=== PATIENT | male | born 1945 | race Caucasian/White ===

== ENCOUNTER 2020-12-26 14:28 | Outpatient (CLI) | payer MEDICARE, SELFPAY | END 2020-12-26 14:29 | disposition home or self-care (01) | LOC: ANHCOVIDVC 14:28 | PROVIDERS: PCP Internal Medicine | DX: Z23 Encounter for immunization (principal) | CPT/HCPCS: 0001A; 91300 ==

== ENCOUNTER 2021-01-16 14:26 | Outpatient (CLI) | payer MEDICARE, SELFPAY | END 2021-01-16 14:27 | disposition home or self-care (01) | LOC: ANHCOVIDVC 14:26 | PROVIDERS: PCP Internal Medicine | DX: Z23 Encounter for immunization (principal) | CPT/HCPCS: 0002A; 91300 ==

== ENCOUNTER 2023-08-04 09:49 | Outpatient (CLI) | payer MEDICARE, SELFPAY ==
[2023-08-04 18:36] LABS: Basophils Percent Auto 0.5 % (0.2-1.2); Eosinophils Absolute Auto 0.2 K/mm3 (0-0.3); Eosinophils Percent Auto 2.4 % (0-4.4); Hematocrit 47.8 % (42.0-52.0); Hemoglobin 15.7 g/dL (14.0-18.0); Immature Granulocyte Absolute 0.02 K/mm3 (0.00-0.031); Immature Granulocyte Percent A 0.2 % (0-0.5); Lymphocytes Absolute Auto 3.53 K/mm3 (0.9-3.2); Lymphocytes Percent Auto 42.3 % (18.3-44.2); Mean Corpuscular HGB Conc 32.8 g/dl (32-36); Mean Corpuscular Hemoglobin 33.3 pg (26-34); Mean Corpuscular Volume 101.5 fl (80-100); Mean Platelet Volume 9.4 fl (7.4-10.4); Monocytes Absolute Auto 0.7 K/mm3 (0.1-0.6); Monocytes Percent Auto 8.5 % (2.6-8.5); Neutrophils Absolute Auto 3.8 K/mm3 (1.3-6.7); Neutrophils Percent Auto 46.1 % (45.5-73.1); Platelet Count Result 268 k/mm3 (150-375); Red Blood Count 4.71 M/mm3 (4.6-6.20); Red Cell Distribution Width 15.2 % (11.5-14.5); White Blood Count 8.3 K/mm3 (4.5-10.0)
[2023-08-04 19:24] LABS: Alanine Aminotransferase 29 U/L (6-50); Albumin Level 4.4 g/dL (3.5-5.1); Alkaline Phosphatase 81 U/L (38-126); Anion Gap 4 mmol/L (8-16); Aspartate Amino Transferase 32 U/L (17-59); Bilirubin,Total 0.8 mg/dL (0.2-1.3); Blood Urea Nitrogen 25 mg/dL (9-20); Calcium 9.2 mg/dL (8.4-10.2); Carbon Dioxide 29 mmol/L (22-30); Chloride 104 mmol/L (98-107); Cholesterol 173 mg/dL (0-200); Estimated Glomerular Filt Rate 59; Glucose 88 mg/dL (65-110); HDL Direct 76 mg/dL; Potassium 4.4 mmol/L (3.4-5.0); Sodium 137 mmol/L (137-145); Triglycerides 72 mg/dL (<150)
[2023-08-04 19:36] LABS: LDL Cholesterol Direct 73 mg/dL
[2023-08-04 19:54] LABS: Prostate Specific Antigen 2.7 ng/mL (< OR = 4.0)
[2023-08-04 20:38] LABS: Hemoglobin A1C 5.8 % (<5.7)
== END 2023-08-04 09:50 | disposition home or self-care (01) ==
PROVIDERS: PCP Internal Medicine; Visit Provider Clinical Nurse Specialist
DX: Z12.5 Encounter for screening for malignant neoplasm of prostate (principal); E78.5 Hyperlipidemia, unspecified; R73.9 Hyperglycemia, unspecified; I10 Essential (primary) hypertension; I48.91 Unspecified atrial fibrillation
CPT/HCPCS: 36415; 80053; 80061; 83036; 84153; 85025; G0103

== ENCOUNTER 2024-02-03 09:32 | Outpatient (CLI) | payer MEDICARE, SELFPAY ==
[2024-02-03 13:46] LABS: Basophils Percent Auto 0.5 % (0.2-1.2); Eosinophils Absolute Auto 0.2 K/mm3 (0-0.3); Eosinophils Percent Auto 2.5 % (0-4.4); Hematocrit 47.2 % (42.0-52.0); Hemoglobin 15.2 g/dL (14.0-18.0); Immature Granulocyte Absolute 0.03 K/mm3 (0.00-0.031); Immature Granulocyte Percent A 0.4 % (0-0.5); Lymphocytes Absolute Auto 3.54 K/mm3 (0.9-3.2); Lymphocytes Percent Auto 42.9 % (18.3-44.2); Mean Corpuscular HGB Conc 32.2 g/dl (32-36); Mean Corpuscular Volume 102.6 fl (80-100); Mean Platelet Volume 9.7 fl (7.4-10.4); Monocytes Absolute Auto 0.6 K/mm3 (0.1-0.6); Monocytes Percent Auto 7.8 % (2.6-8.5); Neutrophils Absolute Auto 3.8 K/mm3 (1.3-6.7); Neutrophils Percent Auto 45.9 % (45.5-73.1); Platelet Count Result 269 k/mm3 (150-375); Red Cell Distribution Width 15.5 % (11.5-14.5); White Blood Count 8.3 K/mm3 (4.5-10.0)
[2024-02-03 14:02] LABS: Alanine Aminotransferase 25 U/L (6-50); Albumin Level 4.4 g/dL (3.5-5.1); Alkaline Phosphatase 85 U/L (38-126); Anion Gap 6 mmol/L (4-12); Aspartate Amino Transferase 56 U/L (17-59); Bilirubin,Total 0.8 mg/dL (0.2-1.3); Blood Urea Nitrogen 29 mg/dL (9-20); Calcium 9.5 mg/dL (8.4-10.2); Carbon Dioxide 26 mmol/L (22-30); Chloride 108 mmol/L (98-107); Cholesterol 160 mg/dL (0-200); Estimated Glomerular Filt Rate 59; Glucose 83 mg/dL (65-110); HDL Direct 65 mg/dL; Potassium 4.2 mmol/L (3.4-5.0); Sodium 140 mmol/L (137-145); Triglycerides 75 mg/dL (<150)
[2024-02-03 14:13] LABS: LDL Cholesterol Direct 71 mg/dL
[2024-02-03 14:31] LABS: Prostate Specific Antigen 2.5 ng/mL (< OR = 4.0)
== END 2024-02-03 09:33 | disposition home or self-care (01) ==
LOC: ANHGOSHLAB 09:33
PROVIDERS: PCP Internal Medicine; Visit Provider Nurse Practitioner
DX: E78.5 Hyperlipidemia, unspecified (principal); I10 Essential (primary) hypertension; Z13.6 Encounter for screening for cardiovascular disorders; Z12.5 Encounter for screening for malignant neoplasm of prostate; I48.91 Unspecified atrial fibrillation
CPT/HCPCS: 36415; 80053; 80061; 84153; 85025; G0103

== ENCOUNTER 2025-03-02 09:03 | Outpatient (CLI) | payer MEDICARE, SELFPAY ==
--- OUTSIDE RECORDS SUMMARY | 2025-03-02 09:15 | XMS_ITS | Encounter Summary ---
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, including hip Social History Tobacco Use Types Packs/Day Years Used Date Smoking Tobacco: Every Day Cigarettes Smokeless Tobacco: Current Alcohol Use Standard Drinks/Week Comments Yes 1 (1 standard drink = 0.6 oz pur e alcohol) Sex and Gender Information Value Date Recorded Sex Assigned at Not on file Legal Sex Male 5:13 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 CLAMP 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 Gender Identity Not on file Sexual Orientation Not on file documented as of this encounter Plan of Treatment Not on file documented as of this encounter Procedures Procedure Name Priority Date/Time Associated Diagnosis Comments DERMATOPATHOLOGY Routine 12/24/2023 12:0 0 AM SASH CLAMP OPERATOR 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 SKIN, right distal pretibial region: SQUAMOUS CELL CARCINOMA, WELL DIFFERENTIATED (C44.722) NOT PRESENT AT MARGIN DERMAL SCAR (L90.5) 11:[address] [facility] DERMATOPATHOLOGY LABORATORY Clinical History Squamous Cell Carcinoma. Check margins. 11:[address] [facility] DERMATOPATHOLOGY LABORATORY Gross Description Specimen A: Received is one formalin filled container labeled with the patient's name and designated right distal pretibial region. The specimen consists of a non-oriented ellipse of skin measuring 17t52d8 mm. The epidermal surface is unremarkable. The margin is inked green. The 12 o'clock and 6 o'clock tips are submitted in cassette 1. The remainder of the ellipse is serially sectioned and submitted in cassette 2-3. Jar 0. 11:[address] [facility] DERMATOPATHOLOGY LABORATORY Microscopic Description Specimen A. SKIN, right distal pretibial region: Arising in the epidermis and extending into the dermis there are irregularly shaped aggregates of keratinocytes showing evidence of premature cornification. This lesion is not present at the margin of the specimen. There are fibroblasts and collagen bundles oriented parallel to the skin surface with elongated blood vessels, some of which are oriented perpendicular to the skin surface. 11:[address] [facility] DERMATOPATHOLOGY LABORATORY Disclaimer An external and internal positive and negative controls are appropriate for the histochemical, immunohistochemical and immunofluorescence stain(s) in this case (if any), except where stated explicitly. The performance characteristics of the stain(s) cited in this report were developed and its performance characteristic determined by the Dermatopathology Laboratory at [facility], directed by Dr. Lance Guaman. These tests need not be, and therefore are not, approved by the [place] Food and Drug Administration. The tests are used for clinical purposes. 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
--- OUTSIDE RECORDS SUMMARY | 2025-03-02 09:15 | XMS_ITS | Clinical Summary ---
Author Organization [facility] Address [address] [place] [address] Care Team Providers Care Hha Name Role Phone Zane Rice DO Primary Care Provider Source Comments [facility],non-owned Affiliates and Associated Physician Practices is amultiple site organization consisting of ambulatory clinics and hospital sitesin [place], [place], [place] and [place]. This disclosure is being madepursuant to the Care Everywhere program and may not contain all information available regarding this patient. Last updated 18.[employer] [facility] Allergies No known active allergies Medications * Be aware that medications may not be up to date on this document. Alwaysverify current medications with the patient. atorvastatin (LIPITOR) 10 MG tablet Take 10 mg by mouth once daily 0 8 Active metoprolol tartrate (LOPRESSOR) 25 MG tablet Take 0.5 tablets by mouth 2 times daily 1 8 Active Co-Enzyme Q-10 100 MG Take 1 capsule by mouth once daily 5 Active XARELTO 20 MG tablet Take 20 mg by mouth once daily 8 Active VENTOLIN HFA 108 (90 Base) MCG/ACT inhaler Inhale 2 puffs by mouth as needed 9 Active glycopyrrolate- formoterol (BEVESPI AEROSPHERE) 9-4.8 MCG/ACT inhaler Inhale 2 puffs by mouth as needed 9 Active Efinaconazole (JUBLIA) 10 %Indications:On ychomycosis 1 drop by Apply externally route at bedtime to all affected toenails and around toenails 8 mL 2 2 Active Active Problems Problem Noted Date Diagnosed Date Actinic keratosis 09/19/2018 Encounter for tobacco use cessation counseling 1 11/20/2017 Bradycardia 11/09/2017 Dyslipidemia 11/09/2017 Paroxysmal atrial fibrillation 11/09/2017 Tobacco abuse 11/09/2017 Ventricular premature depolarization 11/09/2017 Personal history of other malignant neoplasm of skin 03/05/2014 Other urticaria 09/16/2011 Immunizations Immunization Administration Dates Next Due INFLUENZA VACCINE 09/02/2021 INFLUENZA VACCINE, HIGH-DOSE , QUADR. (FLUZONE HIGH-DOSE QUADRIVALENT; 65Y+), 0.7 ML (HD-IIV4) 08/13/2020 Family History Medical History Relation Name Comments Cancer Sister cervical; Statu s: Allergy (Severe) Neg Hx Asthma Neg Hx CVA Neg Hx Cancer - Breast Neg Hx Cancer - Other Neg Hx Cancer - Skin, Melanoma Neg Hx Cancer - Skin, Non Melanoma Neg Hx Eczema Neg Hx Hemophilia Neg Hx Psoriasis Neg Hx Rashes/Skin Problems Neg Hx Relation Name Status Comments Sister Social History Tobacco Use Types Packs/Day Years Used Date Smoking Tobacco: Every Day Cigarettes Smokeless Tobacco: Current Alcohol Use Standard Drinks/Week Comments Yes 1 (1 standard drink = 0.6 oz pur e alcohol) Sex and Gender Information Value Date Recorded Sex Assigned at Not on file Legal 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 Gender Identity Not on file Sexual Orientation Not on file Last Filed Vital Signs Vital Sign Reading Time Taken Comments Blood Pressure 128/76 09/17/2015 2:44 PM CDL INSTRUCTOR Pulse 54 09/17/2015 2:44 PM CDL INSTRUCTOR Temperature - - Respiratory Rate - - Oxygen Saturation - - Inhaled Oxygen Concentration - - Weight - - Height - - Body Mass Index - - Plan of Treatment Health Maintenance Due Date Last Done Comments HEPATITIS C SCREENING 06/17/1964 DTAP/TDAP/TD VACCINES (1 - Tdap) 1965 PNEUMOCOCCAL VACCINE 50+ (1 of 2 - PCV) 1965 ZOSTER VACCINE (1 of 2) 1996 Respiratory Syncytial Virus (RSV) Vaccine Pt: or over 60 yrs (1 - 1-dose 75+ series) 2021 COVID-19 VACCINE ( - 2023-2 5 season) 2024 DEPRESSION SCREENING 10/18/2024 MEDICARE AWV CALENDAR YEAR 2024 INFLUENZA VACCINE (Season Ended) 2025 09/02/2021, 08/13/2020 HEPATITIS B VACCINE Aged Out No longe r eligible based on patient's age to complete this topic HIB VACCINE Aged Out No longer eligi ble based on patient's age to complete this topic HPV VACCINE Aged Out No longer eligi ble based on patient's age to complete this topic MENINGOCOCCAL (Group B) VACCINE SHARED DECISION-MAKING Aged Out No longer eligible based on patient's age to complete this topic MENINGOCOCCAL GROUPS A/C/Y/W VACCINE Aged Out No longer eligible b ased on patient's age to complete this topic Insurance [place] [address] AETNA AETNA AETNA AETNA AETNA AETNA AETNA AETNA AETNA Care Teams Hha Relationship Specialty Start Date End Date Zane Rice DO PCP - General 11/07/12
--- OUTSIDE RECORDS SUMMARY | 2025-03-02 09:15 | XMS_ITS | Encounter Summary ---
Author Organization [facility] Address [facility] [facility] [place] [address] Care Team Providers Care Certified Real Estate Appraiser Name Role Phone Zane Rice DO Primary Care Provider [phone] Encounter Details Date Type Department Care Team (Late st Contact Info) Description 10/20/2024 Lab Requisition [facility] - DermPath Lab [address] [place] [phone] Raji Jean Baptiste MD [facility] DERMATOLOGY [address] [place] [phone] Neoplasm of uncertain behavior of skin Social History Tobacco Use Types Packs/Day Years Used Date Smoking Tobacco: Every Day Cigarettes Smokeless Tobacco: Current Alcohol Use Standard Drinks/Week Comments Yes 1 (1 standard drink = 0.6 oz pur e alcohol) Sex and Gender Information Value Date Recorded Sex Assigned at Not on file Legal Sex Male 5:13 PM HEALTH CARE FACILITY ADMINISTRATOR Gender Identity Not on file Sexual Orientation Not on file documented as of this encounter Plan of Treatment Not on file documented as of this encounter Procedures Procedure Name Priority Date/Time Associated Diagnosis Comments DERMATOPATHOLOGY Routine 10/20/2024 3:33 AM HEALTH CARE FACILITY ADMINISTRATOR Neoplasm of uncertain behavior of skin documented in this encounter Results * DERMATOPATHOLOGY (10/20/2024 3:33 AM HEALTH CARE FACILITY ADMINISTRATOR) Case Report Dermatopathology Report Case: [id number] Authorizing Provider: Raji Jean Baptiste MD Collected: 10/20/2024 03:33 AM Ordering Location: [facility] - Received: 10/24/2024 12:59 PM DermPath Lab Pathologist: Carolina Mazariegos MD Specimen: Skin, right lateral lower leg 3:35 PM [facility] DERMATOPATHOLOGY LABORATORY Final Diagnosis Specimen A. SKIN, right lateral lower leg: SQUAMOUS CELL CARCINOMA IN SITU (CUEVAS'S DISEASE) (D04.71) 3:35 PM HEALTH CARE FACILITY ADMINISTRATOR DERMATOPATHOLOGY LABORATORY Clinical History Squamous Cell Carcinoma 3:35 PM HEALTH CARE FACILITY ADMINISTRATOR DERMATOPATHOLOGY LABORATORY Gross Description Specimen A: Received is one formalin filled container labeled with the patient's name and designated right lateral lower leg. The specimen consists of a shave biopsy measuring 8x7x4 mm. Jar 0. 3:35 PM HEALTH CARE FACILITY ADMINISTRATOR DERMATOPATHOLOGY LABORATORY Microscopic Description Specimen A. SKIN, right lateral lower leg: The epidermis shows parakeratosis, full thickness disorderly maturation of keratinocytes, mitoses at different levels, and dyskeratotic cells. 3:35 PM [facility] DERMATOPATHOLOGY LABORATORY Disclaimer An external and internal positive and negative controls are appropriate for the histochemical, immunohistochemical and immunofluorescence stain(s) in this case (if any), except where stated explicitly. The performance characteristics of the stain(s) cited in this report were developed and its performance characteristic determined by the Dermatopathology Laboratory at [facility], directed by Dr. Lance Guaman. These tests need not be, and therefore are not, approved by the [place] Food and Drug Administration. The tests are used for clinical purposes. Billing Codes Specimen Charges Stain Charges 65711 1 3:35 PM HEALTH CARE FACILITY ADMINISTRATOR DERMATOPATHOLOGY LABORATORY Embedded Images 3:35 PM HEALTH CARE FACILITY ADMINISTRATOR DERMATOPATHOLOGY LABORATORY Pathology/Cytolo gy TISSUE SPECIMEN FROM SKIN / Unknown 10/20/2024 3:33 AM HEALTH CARE FACILITY ADMINISTRATOR 10/24/2024 12:59 PM HEALTH CARE FACILITY ADMINISTRATOR us Raji Jean Baptiste MD LAB - PATHOLOGY/CYTOLOGY ORDE HONG Final Result DERMATOPATHOLOGY LABORATORY [facility] - Department of Dermatology [facility] [address] [facility], [address] [phone] documented in this encounter Visit Diagnoses Diagnosis Neoplasm of uncertain behavior of skin documented in this encounter Care Teams Certified Real Estate Appraiser Relationship Specialty Start Date End Date Zane Rice DO PCP - General 11/07/12 documented as of this encounter
--- OUTSIDE RECORDS SUMMARY | 2025-03-02 09:15 | XMS_ITS | Referral Summary ---
Author Organization [facility] [address] Address [address] [place] [address] Care Team Providers Care District Fire Management Officer Name Role Phone Zane Rice DO Primary Care Provider [phone] Allergies No known active allergies Medications coenzyme Q41-ioqtfnq E (CO Q-10, WITH VIT E,) 100-5 mg-unit capsule 0 0 5 Active psoisnws-wngk-wxp montse gluconat (multivitamin with iron-minerals) 9 mg iron/15 mL liquid 0 0 5 Active atorvastatin (LIPITOR) 10 mg tablet TAKE 1 TABLET BY ORAL ROUTE EVERY DAY 30 11 6 Active albuterol HFA (PROVENTIL HFA,VENTOLIN HFA,PROAIR HFA) 90 mcg/actuation inhaler Inhale 2 puffs 9 Active BEVESPI AEROSPHERE 9-4.8 mcg inhaler 2 puffs 2 (two) times a day 9 Active acidophilus-pecti n, citrus 100 million cell-10 mg capsule Take by mouth Active Xarelto 20 mg tabletIndications :Paroxysmal atrial fibrillation (HCC) TAKE 1 TABLET DAILY 90 tablet 2 5 Active metoprolol tartrate (LOPRESSOR) 25 mg immediate release tablet TAKE 1/2 TABLETS BY MOUTH TWICE DAILY 90 tablet 1 5 Active Active Problems Problem Noted Date Diagnosed Date Permanent atrial fibrillation 02/10/2024 Ventricular premature depolarization 11/09/2017 Tobacco abuse 11/09/2017 Dyslipidemia 11/09/2017 Bradycardia 11/09/2017 Resolved Problems Problem Noted Date Diagnosed Date Resolved Date Paroxysmal atrial fibrillation 11/09/2017 02/10/2024 Social History Tobacco Use Types Packs/Day Years Used Date Smoking Tobacco: Heavy Smoker Smokeless Tobacco: Never Tobacco Cessation:Ready to Q uit: Not Asked; Counseling Given: Not Answered Comments:Smoking History Packs/day: 0.5 Packs Alcohol Use Standard Drinks/Week Comments Yes 0 (1 standard drink = 0.6 oz pur e alcohol) Sex and Gender Information Value Date Recorded Sex Assigned at Not on file Legal Sex Male 3:36 AM APPLIANCES SAMPLE MAKER Gender Identity Not on file Sexual Orientation Not on file Last Filed Vital Signs Vital Sign Reading Time Taken Comments Blood Pressure 120/86 09/01/2024 10:59 AM APPLIANCES SAMPLE MAKER Pulse 83 09/01/2024 10:59 AM APPLIANCES SAMPLE MAKER Temperature - - Respiratory Rate 16 09/01/2024 10:59 AM APPLIANCES SAMPLE MAKER Oxygen Saturation 97% 08/10/2023 10:42 AM CDT Inhaled Oxygen Concentration - - Weight 75.3 kg (166 lb) 09/01/2024 10:59 AM APPLIANCES SAMPLE MAKER Height 185.4 cm (6' 1 ) 09/01/2024 10:59 AM APPLIANCES SAMPLE MAKER Body Mass Index 21.9 09/01/2024 10:59 AM APPLIANCES SAMPLE MAKER Plan of Treatment Not on file Insurance T MEDICARE [facility] MEDICARE Care Teams District Fire Management Officer Relationship Specialty Start Date End Date Zane Rice DO PCP - General 02/12/15
--- OUTSIDE RECORDS SUMMARY | 2025-03-02 09:15 | XMS_ITS | Encounter Summary ---
Author Organization [facility] Health Address [facility] [place] [address] Care Team Providers Care Utilities Ground Worker Name Role Phone Zane Rice DO Primary Care Provider [phone] [phone] Encounter Details Date Type Department Care Team (Late st Contact Info) Description 08/13/2023 Lab Requisition [facility] - DermPath Lab [address] [place] [phone] Kaley Paula PA-C [address] [place] [phone] Neoplasm of uncertain behavior of skin Social History Tobacco Use Types Packs/Day Years Used Date Smoking Tobacco: Every Day Cigarettes Smokeless Tobacco: Current Alcohol Use Standard Drinks/Week Comments Yes 1 (1 standard drink = 0.6 oz pur e alcohol) Sex and Gender Information Value Date Recorded Sex Assigned at Not on file Legal Sex Male 5:13 PM RETAIL 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 TRAINEE Gender Identity Not on file Sexual Orientation Not on file documented as of this encounter Plan of Treatment Not on file documented as of this encounter Procedures Procedure Name Priority Date/Time Associated Diagnosis Comments DERMATOPATHOLOGY Routine 08/13/2023 12:0 0 AM CDT Neoplasm of uncertain behavior of skin documented in this encounter Results * DERMATOPATHOLOGY (08/13/2023 12:00 AM CDT) Case Report Dermatopathology Report Case: [id number] Authorizing Provider: Kaley Paula PA-C Collected: 08/13/2023 12:00 AM Ordering Location: [facility] DermPath Lab Received: 08/17/2023 06:20 AM Pathologist: Autumn Hurley MD Specimens: A) - Skin, left chest B) - Skin, left forearm C) - Skin, superior right machado D) - Skin, inferior right machado 2:20 PM T DERMATOPATHOLOGY LABORATORY Final Diagnosis Specimen A. SKIN, left chest: LICHEN PLANUS-LIKE KERATOSIS (BENIGN LICHENOID KERATOSIS) (L82.1) Specimen B. SKIN, left forearm: SQUAMOUS CELL CARCINOMA IN SITU (CUEVAS'S DISEASE) (D04.62) Specimen C. SKIN, superior right machado: BASAL CELL CARCINOMA, NODULAR TYPE (C44.712) Specimen D. 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 The specimen consists of a shave biopsy measuring 5x5x1 mm. Jar 0. Specimen B: Received is one formalin filled container labeled with the patient's name and designated left forearm. The specimen consists of a shave biopsy measuring 10x7x1 mm. Jar 0. Specimen C: Received is one formalin filled container labeled with the patient's name and designated superior right machado. The specimen consists of a shave biopsy measuring 7x7x2 mm. Jar 0. Specimen D: Received is one formalin filled container labeled with the patient's name and designated inferior right machado. The specimen consists of a shave biopsy measuring 11x7x1 mm. Jar 0. 2:20 PM T DERMATOPATHOLOGY LABORATORY Microscopic Description Specimen A. SKIN, left chest: The epidermis is mildly acanthotic. There is a lichenoid infiltrate with vacuolar changes of basilar keratinocytes and scattered necrotic keratinocytes. Specimen B. SKIN, left forearm: The epidermis shows parakeratosis, full thickness disorderly maturation of keratinocytes, mitoses at different levels, and dyskeratotic cells. Specimen C. SKIN, superior right machado: Within the dermis there are aggregates of basaloid cells with a high nuclear to cytoplasmic ratio and peripheral palisading. Specimen D. SKIN, inferior right machado: Sections show nests of cells with pale cytoplasm and thin strands of relatively normal keratinocytes intervening. There is overlying parakeratosis. 3 2:20 PM CDT DERMATOPATHOLOGY LABORATORY Disclaimer An external and internal positive and negative controls are appropriate for the histochemical, immunohistochemical and immunofluorescence stain(s) in this case (if any), except where stated explicitly. The performance characteristics of the stain(s) cited in this report were developed and its performance characteristic determined by the Dermatopathology Laboratory at [facility], directed by Dr. Lance Guaman. These tests need not be, and therefore are not, approved by the [place] Food and Drug Administration. The tests are used for clinical purposes. Billing Codes Specimen Charges Stain Charges 61038 80072 [id number] 06226 1 1 1 1 3 2:20 PM CDT DERMATOPATHOLOGY LABORATORY Embedded Images 3 2:20 PM CDT DERMATOPATHOLOGY LABORATORY Pathology/Cytology TISSUE SPECIMEN FROM SKIN / Unknown 08/13/2023 08/17/2023 6:20 AM CDT Miscellaneous samples (specimen) TISSUE SPECIMEN FROM SKIN / Unknown 08/13/2023 08/17/2023 6:20 AM CDT Miscellaneous samples (specimen) TISSUE SPECIMEN FROM SKIN / Unknown 08/13/2023 08/17/2023 6:20 AM CDT Miscellaneous samples (specimen) TISSUE SPECIMEN FROM SKIN / Unknown 08/13/2023 08/17/2023 6:20 AM CDT Kaley Paula PA-C LAB - PATHOLOGY/CYTOLOGY GERBERE HONG Final Result DERMATOPATHOLOGY LABORATORY [facility] - Department of Dermatology [facility] Medicine [address] [place] [address], [address] [place] [address], [facility] [phone] documented in this encounter Visit Diagnoses Diagnosis Neoplasm of uncertain behavior of skin documented in this encounter Care Teams Utilities Ground Worker Relationship Specialty Start Date End Date Zane Rice DO PCP - General 11/07/12 documented as of this encounter
--- OUTSIDE RECORDS SUMMARY | 2025-03-02 09:15 | XMS_ITS | Encounter Summary ---
Author Organization [facility] Address [facility] [place] [address] Care Team Providers Care Metal And Plastic Heater Name Role Phone Zane Rice DO Primary Care Provider Encounter Details Date Type Department Care Team (Late st Contact Info) Description 11/18/[address] [facility] - DermPath Lab [address] [facility] [place] [id number] Barbi Whiteside MD [address] [place] [address] [place] [address] Neoplasm of uncertain behavior of skin Social History Tobacco Use Types Packs/Day Years Used Date Smoking Tobacco: Every Day Cigarettes Smokeless Tobacco: Current Alcohol Use Standard Drinks/Week Comments Yes 1 (1 standard drink = 0.6 oz pur e alcohol) Sex and Gender Information Value Date Recorded Sex Assigned at Not on file Legal Sex Male 5:13 PM MEDICAL RECORDS ASSISTANT Gender Identity Not on file Sexual Orientation Not on file documented as of this encounter Plan of Treatment Not on file documented as of this encounter Procedures Procedure Name Priority Date/Time Associated Diagnosis Comments DERMATOPATHOLOGY Routine 11/18/2023 3:33 AM MEDICAL RECORDS ASSISTANT Neoplasm of uncertain behavior of skin documented in this encounter Results * DERMATOPATHOLOGY (11/18/2023 3:33 AM MEDICAL RECORDS ASSISTANT) Case Report Dermatopathology Report Case: [id number] Authorizing Provider: Barbi Whiteside MD Collected: 11/18/2023 03:33 AM Ordering Location: [facility] DermPath Lab Received: 11/19/2023 04:24 PM Pathologist: Reena Winston MD Specimen: Skin, right distal pretibial region 4:19 PM [facility] DERMATOPATHOLOGY LABORATORY Final Diagnosis Specimen A. SKIN, right distal pretibial region: SQUAMOUS CELL CARCINOMA, WELL DIFFERENTIATED (C44.722) 4:19 PM [facility] DERMATOPATHOLOGY LABORATORY Clinical History Squamous Cell Carcinoma vs. Scar 4:19 PM [facility] DERMATOPATHOLOGY LABORATORY Gross Description Specimen A: Received is one formalin filled container labeled with the patient's name and designated right distal pretibial region. The specimen consists of a shave biopsy measuring 9x8x2 mm. Jar 0. 4:19 PM [facility] DERMATOPATHOLOGY LABORATORY Microscopic Description Specimen A. SKIN, right distal pretibial region: Arising in the epidermis and extending into the dermis there are irregularly shaped aggregates of keratinocytes showing evidence of premature cornification. 4:19 PM [facility] DERMATOPATHOLOGY LABORATORY Disclaimer An external and internal positive and negative controls are appropriate for the histochemical, immunohistochemical and immunofluorescence stain(s) in this case (if any), except where stated explicitly. The performance characteristics of the stain(s) cited in this report were developed and its performance characteristic determined by the Dermatopathology Laboratory at [facility], directed by Dr. Lance Guaman. These tests need not be, and therefore are not, approved by the [place] Food and Drug Administration. The tests are used for clinical purposes. Billing Codes Specimen Charges Stain Charges 15391 1 4 4:19 PM [facility] DERMATOPATHOLOGY LABORATORY Embedded Images 4:19 PM [facility] DERMATOPATHOLOGY LABORATORY Pathology/Cytolo gy TISSUE SPECIMEN FROM SKIN / Unknown 11/18/2023 3:33 AM MEDICAL RECORDS ASSISTANT 11/19/2023 4:24 PM [facility] us Barbi Whiteside MD LAB - PATHOLOGY/CYTOLOGY ORDERAB LES Final Result DERMATOPATHOLOGY LABORATORY [facility] - Department of Dermatology [address], [address] [phone] documented in this encounter Visit Diagnoses Diagnosis Neoplasm of uncertain behavior of skin documented in this encounter Care Teams Metal And Plastic Heater Relationship Specialty Start Date End Date Zane Rice DO PCP - General 11/07/12 documented as of this encounter
--- OUTSIDE RECORDS SUMMARY | 2025-03-02 09:15 | XMS_ITS | Clinical Summary ---
Author Organization [facility] Address [address] [facility] Attn: Epic Prelude ADT RADHA GAITAN [address] Care Team Providers Care Valve Seater Operator Name Role Phone Unavailable Primary Care Provider Unavailabl e Immunizations Immunization Administration Dates Next Due (PNEUMOVAX 23)(50 YRS UP) PN EUMOCOCCAL POLYSACCHARIDE (PPV23) 0.5 ML, IM 09/21/2022 INFLUENZA VACCINE HIGH DOSE QUADRIVALENT 65 YR UP PF IM 08/20/2023,08/06/2022 INFLUENZA VACCINE HIGH DOSE TRIVALENT SPLIT VIRUS, (65 YR UP), 0.5ML (PF), IM 09/01/2024 Social History Tobacco Use Types Packs/Day Years Used Date Smoking Tobacco: Never Assessed Sex and Gender Information Value Date Recorded Sex Assigned at Not on file Legal Sex Male 3:27 PM CDT Gender Identity Not on file Sexual Orientation Not on file Plan of Treatment Health Maintenance Due Date Last Done Comments DTAP/TDAP/TD VACCINES (1 - Tdap) 1965 ZOSTER VACCINE (1 of 2) 1996 RSV VACCINE (60+ or ) (1 - 1-dose 75+ series) 2021 PNEUMOCOCCAL VACCINE 50+ YEA RS (2 of 2 - PCV) 09/21/2023 09/21/2022 INFLUENZA VACCINE Completed 09/01/2024, , 08/06/2022 Insurance RX AETNA Medicare Part D RX AETNA Medicare Part D
--- OUTSIDE RECORDS SUMMARY | 2025-03-02 09:15 | XMS_ITS | Encounter Summary ---
Author Organization [facility] Health Address [facility] [place] [place] [address] Care Team Providers Care Rn Telemetry Name Role Phone Zane Rice DO Primary Care Provider [phone] [phone] Reason for Visit * Reason Onset Date Comments Medication Issue 01/14/2022 Encounter Details Date Type Department Care Team (Late st Contact Info) Description 01/14/2022 Telephone [facility] [address] [facility], [facility] [place] [address] Stefany Guaman MD [facility] 3 [place] [address] Medication Issue Social History Tobacco Use Types Packs/Day Years Used Date Smoking Tobacco: Every Day Cigarettes Smokeless Tobacco: Current Alcohol Use Standard Drinks/Week Comments Yes 1 (1 standard drink = 0.6 oz pur e alcohol) Sex and Gender Information Value Date Recorded Sex Assigned at Not on file Legal Sex Male 5:13 PM LADIES ATTENDANT Gender Identity Not on file Sexual Orientation Not on file documented as of this encounter Miscellaneous Notes * Telephone Encounter - Gene Franks - 01/14/2022 10:59 AM CDT Pt called and said they will pay out of pocket for medication that was prescribed that needed the PA. Please advise documented in this encounter Plan of Treatment Not on file documented as of this encounter Visit Diagnoses Not on filedocumented in this encounter Care Teams Rn Telemetry Relationship Specialty Start Date End Date Zane Rice DO PCP - General 11/07/12 documented as of this encounter
--- OUTSIDE RECORDS SUMMARY | 2025-03-02 09:15 | XMS_ITS | Clinical Summary ---
Author Organization [facility] [address] Address [address] [place] [address] Care Team Providers Care Electrical Systems Designer Name Role Phone Zane Rice DO Primary Care Provider +1- [phone] Allergies No known active allergies Medications coenzyme P05-pxulhwq E (CO Q-10, WITH VIT E,) 100-5 mg-unit capsule 0 0 5 Active gzybipyu-qrza-tzu montse gluconat (multivitamin with iron-minerals) 9 mg [...] Resolved Date Paroxysmal atrial fibrillation 11/09/2017 02/10/2024 Medical History Medical History Date Comments Hx Other Medical atrial fibrilla tion; Comments: [facility] 11/20/2014 - Hx Other Medical tobacco use; Co mments: [facility] 11/20/2014 - Hx Other Medical syncope; Commen ts: [facility] 11/20/2014 - Social History Tobacco Use Types Packs/Day Years [...] on file Legal Sex Male 3:36 AM ATHLETIC INSTRUCTOR Gender Identity Not on file Sexual Orientation Not on file Obstetrics History Last Filed Vital Signs Vital Sign Reading Time Taken Comments Blood Pressure 120/86 09/01/2024 10:59 AM ATHLETIC INSTRUCTOR Pulse 83 09/01/2024 10:59 AM ATHLETIC INSTRUCTOR Temperature - - Respiratory Rate 16 09/01/2024 10:59 AM ATHLETIC INSTRUCTOR Oxygen Saturation 97% 08/10/2023 10:42 AM CDT Inhaled Oxygen Concentration - - Weight 75.3 kg (166 lb) 09/01/2024 10:59 AM ATHLETIC INSTRUCTOR Height 185.4 cm (6' 1 ) 09/01/2024 10:59 AM ATHLETIC INSTRUCTOR Body Mass Index 21.9 09/01/2024 10:59 AM ATHLETIC INSTRUCTOR Plan of Treatment Health Maintenance Due Date Last Done Comments Depression Screening 1946 Fall Risk Assessment 1945 Hepatitis C Screening 1945 DTaP/Tdap/Td Vaccine (1 - Tdap) 1957 Hepatitis B Screening 1964 Zoster Vaccine (1 of 2) 1996 Abdominal Aortic Aneurysm (A AA) Screen 2011 Well Visit 65+ 2011 Pneumococcal vaccine 65+ (2 of 2 - PCV) 09/21/2023 09/21/2022 Influenza Vaccine (Season Ended) 2025 09/02/2021, 08/13/2020, 10/17/2019 Insurance T MEDICARE T MEDICARE Care Teams Electrical Systems Designer Relationship Specialty Start Date End Date Zane Rice DO PCP - General 02/12/15
[2025-03-02 12:22] LABS: Basophils Percent Auto 0.5 % (0.2-1.2); Eosinophils Absolute Auto 0.2 K/mm3 (0-0.3); Eosinophils Percent Auto 2.4 % (0-4.4); Hematocrit 46.1 % (42.0-52.0); Hemoglobin 15.1 g/dL (14.0-18.0); Immature Granulocyte Absolute 0.02 K/mm3 (0.00-0.031); Immature Granulocyte Percent A 0.2 % (0-0.5); Lymphocytes Absolute Auto 4.05 K/mm3 (0.9-3.2); Lymphocytes Percent Auto 46.1 % (18.3-44.2); Mean Corpuscular HGB Conc 32.8 g/dl (32-36); Mean Corpuscular Hemoglobin 33.1 pg (26-34); Mean Corpuscular Volume 101.1 fl (80-100); Mean Platelet Volume 9.4 fl (7.4-10.4); Monocytes Absolute Auto 0.8 K/mm3 (0.1-0.6); Monocytes Percent Auto 8.5 % (2.6-8.5); Neutrophils Absolute Auto 3.7 K/mm3 (1.3-6.7); Neutrophils Percent Auto 42.3 % (45.5-73.1); Platelet Count Result 250 k/mm3 (150-375); Red Blood Count 4.56 M/mm3 (4.6-6.20); Red Cell Distribution Width 15.4 % (11.5-14.5); White Blood Count 8.8 K/mm3 (4.5-10.0)
[2025-03-02 12:29] LABS: Alanine Aminotransferase 25 U/L (6-50); Albumin Level 4.2 g/dL (3.5-5.1); Alkaline Phosphatase 82 U/L (38-126); Anion Gap 7 mmol/L (4-12); Aspartate Amino Transferase 56 U/L (17-59); Bilirubin,Total 0.7 mg/dL (0.2-1.3); Blood Urea Nitrogen 31 mg/dL (9-20); Calcium 9.1 mg/dL (8.4-10.2); Carbon Dioxide 27 mmol/L (22-30); Chloride 107 mmol/L (98-107); Cholesterol 166 mg/dL (0-200); Estimated Glomerular Filt Rate 56; Glucose 95 mg/dL (65-110); HDL Direct 66 mg/dL; Potassium 4.8 mmol/L (3.4-5.0); Sodium 141 mmol/L (137-145); Triglycerides 85 mg/dL (<150)
[2025-03-02 12:40] LABS: LDL Cholesterol Direct 60 mg/dL
[2025-03-02 13:00] LABS: Prostate Specific Antigen 3.1 ng/mL (< OR = 4.0)
[2025-03-02 13:50] LABS: Hemoglobin A1C 5.8 % (<5.7)
== END 2025-03-02 09:04 | disposition home or self-care (01) ==
PROVIDERS: PCP Internal Medicine; Visit Provider Nurse Practitioner
DX: I48.91 Unspecified atrial fibrillation (principal); R73.9 Hyperglycemia, unspecified; I10 Essential (primary) hypertension; E78.5 Hyperlipidemia, unspecified; Z12.5 Encounter for screening for malignant neoplasm of prostate
CPT/HCPCS: 36415; 80053; 80061; 83036; 84153; 85025; G0103

== ENCOUNTER 2025-04-19 09:45 | Inpatient (IN) | payer MEDICARE, SELFPAY ==
[2025-04-19] VITALS (28 sets, daily range): BP systolic 97–163; BP diastolic 63–114; PULSE 101–125; RESP 18–35; TEMP 36.8–38.3; O2SAT 90–100; BMI 21.5
--- NOTE | ~2025-04-19 | CT_ITS ---
EXAMINATION: CT diagnostic chest w con DATE: 04/19/2025 12:13 INDICATION: sepsis, RLL opacity TECHNIQUE: Computed tomography (CT) of the chest was performed with 100 mL Omnipaque-350 intravenous contrast. Additional 3D reconstructions utilizing coronal maximum intensity projection (MIP) were per formed. Automated exposure control and iterative reconstruction technique were employed. The dose-boo gth product was 316.94 mGy-cm. COMPARISON: None FINDINGS: Moderate emphysema. There is relatively large region of consolidation in the posterior right lower lo be within which are multiple residual cystic airspaces and which traverse the pulmonary vasculature w ithout evident mass effect consistent with pneumonia. Mild discoid atelectasis at the lingula. No pul monary edema, pleural effusion or pneumothorax. Heart size is normal. Atherosclerotic coronary artery calcifications. No pericardial effusion. Thoracic aorta is normal in caliber with no dissection. No pathologically enlarged thoracic lymphadenopathy. Multiple hepatic cysts measuring up to 3.3 cm. Part ially visualized at least 2.8 cm right renal cyst and 2.3 cm cyst at the upper pole the left kidney. There are 3 small calcifications at the left renal pelvis, one of which appears nondependent and with clearly simple fluid attenuation within the renal pelvis which suggests either clot or soft tissue w ithin the renal pelvis, the latter raising concern for malignancy. Severe thoracic spondylosis with c hronic mild anterior wedging of a few mid thoracic vertebral bodies. IMPRESSION: 1. Moderate emphysema with right lower lobe pneumonia. 2. 3 small calcifications and increased density in the left renal pelvis which could represent nephro lithiasis and associated clot but also raises concern for urothelial carcinoma. Correlate with urinal ysis and would recommend CT angiogram for further evaluation. Reviewed, dictated and finalized at location B. IMPRESSION: 1. Moderate emphysema with right lower lobe pneumonia. 2. 3 small calcifications and increased density in the left renal pelvis which could represent nephrolithiasis and associated clot but also raises concern for urothelial carcinoma. Correlate with urinalysis and would recommend CT angiogr am for further evaluation.
--- NOTE | ~2025-04-19 | CT_ITS ---
CLINICAL INDICATION: Abnormal left renal pelvis COMPARISON: Diagnostic CT performed of the chest, approximately 90 minutes earlier. Examination was also compared with previous noncontrast enhanced study dated 06/09/2005. TECHNIQUE: Multiple contiguous axial images of the abdomen and pelvis were performed both prior to an d following the administration of with 100 mL Omnipaque-350 intravenous contrast The dose-length product (DLP) was 600.39 mGy-cm. Automated exposure control and iterative reconstruction technique were employed. FINDINGS/OBSERVATIONS: Visualized lower thorax: Redemonstration of a right basilar infiltrate. Panlobular emphysematous disease is noted along with c ylindrical bronchiectasis. The remainder of the lungs are clear. The heart is of normal size, without pericardial effusion. Small hiatal hernia is present. Liver: Innumerable rounded well-circumscribed foci of decreased attenuation within the liver, consistent wit h simple cysts, unchanged from 2005 examination. Gallbladder and biliary system: The gallbladder is distended, and otherwise unremarkable. Pancreas: The pancreas enhances homogeneously without ductal dilatation. Spleen: The spleen enhances homogeneously and is not enlarged. Kidneys: Within the left renal pelvis is a 9.3 x 13 mm filling defect, which represents not only the calcifica tions, but also a soft tissue attenuation focus, for which direct visualization is recommended. No additional filling defects are appreciated. Multiple well-circumscribed rounded focus of fluid attenuation are identified within the bilateral ki dneys, for which cysts are suspected. These areas have increased in both quantity in size since the p revious examination performed in 2004. Adrenal glands: Unremarkable. Gastrointestinal tract: Fecal stasis within the colon. Appendix: The air-filled appendix is of normal caliber (axial series, images 118 through 142). Vasculature: Densely calcified atherosclerotic disease. Lymph nodes: No pathologically enlarged or morphologically suspicious lymph nodes within the retroperitoneum or at the root of the mesentery. Pelvic structures: The bladder is only minimally distended, but opacifies with intravenous contrast. The prostate gland is not significantly enlarged. Body wall and musculoskeletal: Age-appropriate degenerative disease within the visualized portion of the lumbosacral spine. IMPRESSION: Findings within the left renal pelvis (as detailed above) for which direct visualization is recommend ed. Remainder of the examination is otherwise unremarkable, as detailed above. Reviewed, dictated and finalized at location A. IMPRESSION: Findings within the left renal pelvis (as detailed above) for which direct visu alization is recommended. Remainder of the examination is otherwise unremarkable, as detailed above.
--- NOTE | ~2025-04-19 | XR_ITS ---
CHEST RADIOGRAPH, PA AND LATERAL CLINICAL HISTORY: weakness X 2 DAYS . COMPARISON: 10/19/2019 TECHNIQUE: PA and lateral views of the chest. FINDINGS The cardiomediastinal silhouette is partially obscured. Consolidation within the superior segment of the right lower lobe, an interval change. No air bronchograms are appreciated for which cross-sectional imaging (noncontrast enhanced CT examin ation of the chest) is recommended for further evaluation. IMPRESSION: Airspace opacity without air bronchograms in the superior segment of the right lower lobe, for which noncontrast enhanced CT examination of the chest is recommended for further evaluation. Reviewed, dictated and finalized at location A. IMPRESSION: Airspace opacity without air bronchograms in the superior segment of the right lower lobe, for which noncontrast enhanced CT examination of the chest is recom mended for further evaluation.
--- OUTSIDE RECORDS SUMMARY | 2025-04-19 09:50 | XMS_ITS | Referral Summary ---
Author Organization [facility] [address] [facility] [address] Address [address] [place] [address] Care Team Providers Care Dust Mill Operator Name Role Phone Zane Rice DO Primary Care Provider [phone]- [phone] Encounters Date Type Department Care Team Description 03/14/2025 Orders Only [facility] Cardiology [address] [place] [address] [address] [place] [address] Vashti Funes MD 03/13/2025 11:00 AM CDT Office Visit [facility] Cardiology at [address] [place] [address] Jarvis Greenberg MD Permanent atrial fibrillation (HCC) (Primary Dx) from Last 3 Months Allergies No known active allergies Medications coenzyme G42-pkvcufa E (CO Q-10, WITH VIT E,) 100-5 mg-unit capsule 0 0 5 Active frfkolti-zpco-moa montse gluconat (multivitamin with iron-minerals) 9 mg iron/15 mL liquid 0 0 5 Active atorvastatin (LIPITOR) 10 mg tablet TAKE 1 TABLET BY ORAL ROUTE EVERY DAY 30 6 Active albuterol HFA (PROVENTIL HFA,VENTOLIN HFA,PROAIR [...] on file Legal Sex Male 3:36 AM MANAGER GREEN Gender Identity Not on file Sexual Orientation Not on file Last Filed Vital Signs Vital Sign Reading Time Taken Comments Blood Pressure 126/80 03/13/2025 10:57 AM CDT Pulse 66 03/13/2025 10:57 AM CDT Temperature - - Respiratory Rate 16 03/13/2025 10:57 AM CDT Oxygen Saturation 97% 08/10/2023 10:42 AM CDT Inhaled Oxygen Concentration - - Weight 74.4 kg (164 lb) 03/13/2025 10:57 AM CDT Height 185.4 cm (6' 1) 03/13/2025 10:57 AM CDT Body Mass Index 21.64 03/13/2025 10:57 AM CDT Plan of Treatment Not on file Procedures Procedure Name Priority Date/Time Associated Diagnosis Comments LIPID PANEL Routine 03/02/2025 8:48 AM CDT from Last 3 Months Results * Lipid panel (03/02/2025 8:48 AM CDT) SCRIBED Cholesterol, Total 166 30 - 199 mg/dL EXTERNAL LAB SCRIBED Triglycerides 85 <=149 mg/dL EXTERNAL LAB SCRIBED HDL 66 >=40 mg/dL EXTERNAL LAB SCRIBED LDL 60 <=129 mg/dL EXTERNAL LAB Scribed Non-HDL Cholesterol 0 NONE mg/dL EXTERNAL LAB SCRIBED Total Cholesterol/HDL Ratio 0 NONE EXTERNAL LAB Blood us Historical Provider LAB BLOOD ORDERABLES Edit ed Result - Final EXTERNAL LAB from Last 3 [place] [address] [facility] [place] [address] [facility] [employer] Care Teams Dust Mill Operator Relationship Specialty Start Date End Date Zane Rice DO [facility] - General 02/12/15
--- OUTSIDE RECORDS SUMMARY | 2025-04-19 09:50 | XMS_ITS | Encounter Summary ---
Author Organization [facility] Address [facility]3 [facility] [place] [address] Care Team Providers Care Pipe Layer Name Role Phone Zane Rice DO Primary Care Provider [phone] [phone] Reason for Visit * Reason Onset Date Comments Medication Issue 01/14/2022 Encounter Details Date Type Department Care Team (Late st Contact Info) Description 01/14/2022 Telephone [facility] Dermat[facility] [address] 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
--- OUTSIDE RECORDS SUMMARY | 2025-04-19 09:50 | XMS_ITS | Clinical Summary ---
Author Organization [facility] Address [address] [facility] Attn: Epic Prelude ADT RADHA GAITAN [address] Care Team Providers Care Vpk Teacher Name Role Phone Unavailable Primary Care Provider [...] 2 - PCV) 09/21/2023 09/21/2022 INFLUENZA VACCINE (#1) 2025 4, 08/20/2023, 08/06/2022 [place] [address] RX AETNA Medicare Part D RX AETNA Medicare Part D
--- OUTSIDE RECORDS SUMMARY | 2025-04-19 09:50 | XMS_ITS | Encounter Summary ---
Author Organization [facility] Health Address [facility] [place] [address] Care Team Providers Care Trimming Operator Name Role Phone Zane Rice DO Primary Care Provider [phone] [phone] Encounter Details Date Type Department Care Team (Late st Contact Info) Description 08/13/2023 Lab Requisition [facility] - DermPath Lab [address] [place] [address] Kaley Paula PA-C [address] [place] [address] Neoplasm of uncertain behavior of skin Social History Tobacco Use Types Packs/Day Years Used Date Smoking Tobacco: Every Day Cigarettes Smokeless Tobacco: Current Alcohol Use Standard Drinks/Week Comments Yes 1 (1 standard drink = 0.6 oz pur e alcohol) Sex and Gender Information Value Date Recorded Sex Assigned at Not on file Legal Sex Male 5:13 PM COLLEGE PROFESSOR Gender Identity Not on file Sexual Orientation Not on file documented as of this encounter Plan of Treatment Not on file documented as of this encounter Procedures Procedure Name Priority Date/Time Associated Diagnosis Comments DERMATOPATHOLOGY Routine 08/13/2023 12:0 0 AM CDT Neoplasm of uncertain behavior of skin documented in this encounter Results * DERMATOPATHOLOGY (08/13/2023 12:00 AM CDT) Case Report Dermatopathology Report Case: [id number] Authorizing Provider: Kaley Paula PA-C Collected: 08/13/2023 12:00 AM Ordering Location: 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 Jar 0. 3 2:20 PM CDT DERMATOPATHOLOGY LABORATORY Microscopic Description Specimen A. SKIN, [...] characteristic determined by the Dermatopathology Laboratory at [facility], directed by Dr. Lance Guaman. These tests need not be, and therefore are not, approved by the [place] Food and Drug Administration. The tests are used for clinical purposes. Billing Codes Specimen Charges Stain Charges 61415 [address]110 24882 04368 1 1 1 1 3 2:20 PM [...] GERBERE HONG Final Result DERMATOPATHOLOGY LABORATORY [facility] - Department of Dermatology [facility] [address] [place] [address], [address] [place] [address], [facility] [phone] documented in this encounter Visit Diagnoses Diagnosis Neoplasm of uncertain behavior of skin documented in this encounter Care Teams Trimming Operator Relationship Specialty Start Date End Date Zane Rice DO PCP - General 11/07/12 documented as of this encounter
--- OUTSIDE RECORDS SUMMARY | 2025-04-19 09:50 | XMS_ITS | Encounter Summary ---
Author Organization [facility] Address [facility]3 [facility] [place] [address] Care Team Providers Care Civil Engineering Project Designer Name Role Phone Zane Rice DO Primary Care Provider [phone] [phone] Encounter Details Date Type Department Care Team (Late st Contact Info) Description 10/20/2024 Lab Requisition [facility] - DermPath Lab [address] [place] [phone] Raji Jean Baptiste MD [facility] DERMATOLOGY [address] [place] [phone] Neoplasm of uncertain behavior of skin Social History Tobacco Use Types Packs/Day Years Used Date Smoking Tobacco: Every Day Cigarettes Smokeless Tobacco: Current Alcohol Use Standard Drinks/Week Comments Yes 1 (1 standard drink = 0.6 oz pur e alcohol) Sex and Gender Information Value Date Recorded Sex Assigned at Not on file Legal Sex Male 5:13 PM CHIEF TECHNICIAN X RAY Gender Identity Not on file Sexual Orientation Not on file documented as of this encounter Plan of Treatment Not on file documented as of this encounter Procedures Procedure Name Priority Date/Time Associated Diagnosis Comments DERMATOPATHOLOGY Routine 10/20/2024 3:33 AM CHIEF TECHNICIAN X RAY Neoplasm of uncertain behavior of skin documented in this encounter Results * DERMATOPATHOLOGY (10/20/2024 3:33 AM CHIEF TECHNICIAN X RAY) Case Report Dermatopathology Report Case: [id number] Authorizing Provider: Raji Jean Baptiste MD Collected: 10/20/2024 03:33 AM Ordering Location: [facility] - Received: 10/24/2024 12:59 PM DermPath Lab Pathologist: Carolina Mazariegos MD Specimen: Skin, right lateral lower leg 3:[address] [facility] DERMATOPATHOLOGY LABORATORY Final Diagnosis Specimen A. 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 The specimen consists of a shave biopsy measuring 8x7x4 mm. Jar 0. 3:[address] [facility] DERMATOPATHOLOGY LABORATORY Microscopic Description Specimen A. SKIN, right lateral lower leg: The epidermis shows parakeratosis, full thickness disorderly maturation of keratinocytes, mitoses at different levels, and dyskeratotic cells. 3:[address] [facility] DERMATOPATHOLOGY LABORATORY Disclaimer An external and internal positive and negative controls are appropriate for the histochemical, immunohistochemical and immunofluorescence stain(s) in this case (if any), except where stated explicitly. The performance characteristics of the stain(s) cited in this report were developed and its performance characteristic determined by the Dermatopathology Laboratory at [facility], directed by Dr. Lance Guaman. These tests need not be, and therefore are not, approved by the [place] Food and Drug Administration. The tests are used for clinical purposes. Billing Codes Specimen Charges Stain Charges 32091 1 3:35 PM CHIEF TECHNICIAN X RAY DERMATOPATHOLOGY LABORATORY Embedded Images 3:[address] [facility] DERMATOPATHOLOGY LABORATORY Pathology/Cytolo gy TISSUE SPECIMEN FROM SKIN / Unknown 10/20/2024 3:33 AM CHIEF TECHNICIAN X RAY 10/24/2024 12:59 PM CHIEF TECHNICIAN X RAY us Raji Jean Baptiste MD LAB - PATHOLOGY/CYTOLOGY ORDE HONG Final Result DERMATOPATHOLOGY LABORATORY [facility] - Department of Dermatology [facility] [address] [facility], [address] [phone] documented in this encounter Visit Diagnoses Diagnosis Neoplasm of uncertain behavior of skin documented in this encounter Care Teams Civil Engineering Project Designer Relationship Specialty Start Date End Date Zane Rice DO PCP - General 11/07/12 documented as of this encounter
--- OUTSIDE RECORDS SUMMARY | 2025-04-19 09:50 | XMS_ITS | Encounter Summary ---
Author Organization [facility] Address [facility] [place] [address] Care Team Providers Care Rehabilitation Manager Name Role Phone Zane Rice DO Primary Care Provider +1 [phone] Encounter Details Date Type Department Care Team (Late st Contact Info) Description 11/18/2023 Lab Requisition [facility] - DermPath Lab [address] [place] [address] Barbi Whiteside MD [address] [place] [address] [place] [address] Neoplasm of uncertain behavior of skin Social History Tobacco Use Types Packs/Day Years Used Date Smoking Tobacco: Every Day Cigarettes Smokeless Tobacco: Current Alcohol Use Standard Drinks/Week Comments Yes 1 (1 standard drink = 0.6 oz pur e alcohol) Sex and Gender Information Value Date Recorded Sex Assigned at Not on file Legal Sex Male 5:13 PM WATCH ENGINEER Gender Identity Not on file Sexual Orientation Not on file documented as of this encounter Plan of Treatment Not on file documented as of this encounter Procedures Procedure Name Priority Date/Time Associated Diagnosis Comments DERMATOPATHOLOGY Routine 11/18/2023 3:33 AM WATCH ENGINEER Neoplasm of uncertain behavior of skin documented in this encounter Results * DERMATOPATHOLOGY (11/18/2023 3:33 AM WATCH ENGINEER) Case Report Dermatopathology Report Case: [id number] Authorizing Provider: Barbi Whiteside MD Collected: 11/18/2023 03:33 AM Ordering Location: [facility] DermPath Lab Received: 11/19/2023 04:24 PM Pathologist: Reena Winston MD Specimen: Skin, right distal pretibial region 4:19 PM [facility] DERMATOPATHOLOGY LABORATORY Final Diagnosis Specimen A. SKIN, right distal pretibial region: SQUAMOUS CELL CARCINOMA, WELL DIFFERENTIATED (C44.722) 4:19 PM [facility] DERMATOPATHOLOGY LABORATORY at 1618 WATCH ENGINEER Clinical History Squamous Cell Carcinoma vs. Scar 4:19 PM [facility] DERMATOPATHOLOGY LABORATORY Gross Description Specimen A: Received is one formalin filled container labeled with the patient's name and designated right distal pretibial region. The specimen consists of a shave biopsy measuring 9x8x2 mm. Jar 0. 4:19 PM [facility] DERMATOPATHOLOGY LABORATORY Microscopic Description Specimen A. SKIN, right distal pretibial region: Arising in the epidermis and extending into the dermis there are irregularly shaped aggregates of keratinocytes showing evidence of premature cornification. 4:19 PM [facility] DERMATOPATHOLOGY LABORATORY Disclaimer An external and internal positive and negative controls are appropriate for the histochemical, immunohistochemical and immunofluorescence stain(s) in this case (if any), except where stated explicitly. The performance characteristics of the stain(s) cited in this report were developed and its performance characteristic determined by the Dermatopathology Laboratory at [facility], directed by Dr. Lance Guaman. These tests need not be, and therefore are not, approved by the [place] Food and Drug Administration. The tests are used for clinical purposes. Billing Codes Specimen Charges Stain Charges 63988 1 4 4:19 PM [facility] DERMATOPATHOLOGY LABORATORY Embedded Images 4:19 PM [facility] DERMATOPATHOLOGY LABORATORY Pathology/Cytolo gy TISSUE SPECIMEN FROM SKIN / Unknown 11/18/2023 3:33 AM WATCH ENGINEER 11/19/2023 4:24 PM [facility] us Barbi Whiteside MD LAB - PATHOLOGY/CYTOLOGY ORDERAB LES Final Result DERMATOPATHOLOGY LABORATORY [facility] - Department of Dermatology [address], [address] [phone] documented in this encounter Visit Diagnoses Diagnosis Neoplasm of uncertain behavior of skin documented in this encounter Care Teams Rehabilitation Manager Relationship Specialty Start Date End Date Zane Rice DO PCP - General 11/07/12 documented as of this encounter
--- OUTSIDE RECORDS SUMMARY | 2025-04-19 09:50 | XMS_ITS | Encounter Summary ---
Author Organization [facility] Address [address] [facility] [place] [address] Care Team Providers Care Electrical Discharge Machine Operator Name Role Phone Zane Rice DO Primary Care Provider +1 [phone] Encounter Details Date Type Department Care Team (Late st Contact Info) Description 12/24/2023 Lab Requisition [facility] - DermPath Lab [address] [facility] [place] [phone] Barbi Whiteside MD [address] [place] [address] [place] [address] Squamous cell carcinoma of skin [...] on file Legal Sex Male 5:13 PM SAUSAGE TIER Gender Identity Not on file Sexual Orientation Not on file documented as of this encounter Plan of Treatment Not on file documented as of this encounter Procedures Procedure Name Priority Date/Time Associated Diagnosis Comments DERMATOPATHOLOGY Routine 12/24/2023 12:0 0 AM SAUSAGE TIER 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 SKIN, right distal pretibial region: SQUAMOUS CELL CARCINOMA, WELL DIFFERENTIATED (C44.722) NOT PRESENT AT MARGIN DERMAL SCAR (L90.5) 11:16 AM T DERMATOPATHOLOGY LABORATORY at 1116 CDT Clinical History Squamous Cell Carcinoma. Check margins. 11:16 AM T DERMATOPATHOLOGY LABORATORY Gross Description Specimen A: Received is one formalin filled container labeled with the patient's name and designated right distal pretibial region. The specimen consists of a non-oriented ellipse of skin measuring 41q58i0 mm. The epidermal surface is unremarkable. The margin is inked green. The 12 o'clock and 6 o'clock tips are submitted in cassette 1. The remainder of the ellipse is serially sectioned and submitted in cassette 2-3. Jar 0. 11:16 AM T DERMATOPATHOLOGY LABORATORY Microscopic Description Specimen A. [...] perpendicular to the skin surface. 11:16 AM T DERMATOPATHOLOGY LABORATORY Disclaimer An external and internal positive and negative controls are appropriate for the histochemical, immunohistochemical and immunofluorescence stain(s) in this case (if any), except where stated explicitly. The performance characteristics of the stain(s) cited in this report were developed and its performance characteristic determined by the Dermatopathology Laboratory at [facility], directed by Dr. Lance Guaman. These tests need not be, and therefore are not, approved by the [place] Food and Drug Administration. The tests are used for clinical purposes. 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
--- OUTSIDE RECORDS SUMMARY | 2025-04-19 09:51 | XMS_ITS | Clinical Summary ---
Author Organization [facility] [address] Address [address] [place] [address] Care Team Providers Care Wholesaler Name Role Phone Zane Rice DO Primary Care Provider [phone]- [phone] Allergies No known active allergies Medications coenzyme O13-hcunehv E (CO Q-10, WITH VIT E,) 100-5 mg-unit capsule 0 0 5 Active tskjxppg-oteu-wza montse gluconat (multivitamin with iron-minerals) 9 mg [...] Resolved Date Paroxysmal atrial fibrillation 11/09/2017 02/10/2024 Encounters Date Type Department Care Team Description 03/14/2025 Orders Only [facility] Cardiology [address] [facility] [address] [place] [address] ProviderVashti MD 03/13/2025 11:00 AM CDT Office Visit [facility] Cardiology at [address] [place] [address] Jarvis Greenberg MD Permanent atrial fibrillation (HCC) (Primary Dx) from Last 3 Months Medical History Medical History Date Comments Hx Other Medical atrial fibrilla tion; Comments: [facility] 11/20/2014 - Hx Other Medical tobacco use; Co mments: [facility] 11/20/2014 - Hx Other Medical syncope; Commen ts: [facility] 11/20/2014 - Social History Tobacco Use Types [...] on file Legal Sex Male 3:36 AM STOCK TURNER Gender Identity Not on file Sexual Orientation [...] 03/13/2025 10:57 AM CDT Plan of Treatment Health Maintenance Due Date Last Done Comments Depression Screening 1946 Fall Risk Assessment 1945 Hepatitis C Screening 1945 DTaP/Tdap/Td Vaccine (1 - Tdap) 1957 Hepatitis B Screening 1964 Zoster Vaccine (1 of 2) 1996 Abdominal Aortic Aneurysm (A AA) Screen 2011 Well Visit 65+ 2011 Pneumococcal vaccine 65+ (2 of 2 - PCV) 09/21/2023 09/21/2022 Influenza Vaccine Completed 09/01/2024, , 08/13/2020, Additional history exists Procedures Procedure Name Priority Date/Time Associated Diagnosis [...] EXTERNAL LAB from Last 3 [place] [address] AETNA MEDICARE AETNA MEDICARE Care Teams Wholesaler Relationship Specialty Start Date End Date Zane Rice DO PCP - General 02/12/15
--- OUTSIDE RECORDS SUMMARY | 2025-04-19 09:51 | XMS_ITS | Clinical Summary ---
Author Organization [facility] [employer] Address [address] [facility] [place] [address] Care Team Providers Care Human Resources Safety Manager Name Role Phone Zane Rice DO Primary Care Provider Source Comments [facility] [employer],non-owned Affiliates and Associated Physician Practices is amultiple site organization consisting of ambulatory clinics and hospital sitesin [place], [place], [place] and [place]. This disclosure is being madepursuant to the Care Everywhere program and may not contain all information available regarding this patient. 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
--- NOTE | 2025-04-19 10:03 | ECG_ITS ---
Test Date: 2025-04-19 10:10:07 Measurements Intervals [place] Rate: 115 P: 0 CA: 0 QRS: -46 QRSD: 76 T: 48 QT: 280 QTc: 389 Interpretive Statements ATRIAL FIBRILLATION WITH RAPID VENTRICULAR RESPONSE LEFT AXIS DEVIATION [QRS AXIS < -30] No previous ECG available for comparison Electronically Signed On 04-19-2025 16:50:29 CDT by Laith Wang
[2025-04-19 10:24] LABS: Hematocrit 44.3 % (42.0-52.0); Hemoglobin 14.7 g/dL (14.0-18.0); Immature Granulocyte Percent A 0.6 % (0-0.5); Lymphocytes Absolute Auto 1.48 K/mm3 (0.9-3.2); Mean Corpuscular HGB Conc 33.2 g/dl (32-36); Mean Corpuscular Hemoglobin 33.3 pg (26-34); Mean Corpuscular Volume 100.2 fl (80-100); Nucleated Red Blood Cells Absolute Auto 0.000 K/mm3 (0.0-0.012); Nucleated Red Blood Cells Perc 0.0 % (0.0-0.2); Platelet Count Result 229 k/mm3 (150-375); Red Blood Count 4.42 M/mm3 (4.6-6.20); White Blood Count 15.5 K/mm3 (4.5-10.0)
[2025-04-19 10:34] LABS: INR 2.4; Prothrombin Time 25.6 Seconds (11.1-14.7)
[2025-04-19 10:35] LABS: Partial Thromboplastin Time 48.0 Seconds (22.3-36.8)
[2025-04-19 10:37] LABS: Alanine Aminotransferase 20 U/L (6-50); Albumin Level 4.0 g/dL (3.5-5.1); Alkaline Phosphatase 74 U/L (38-126); Anion Gap 10 mmol/L (4-12); Aspartate Amino Transferase 25 U/L (17-59); Bilirubin,Total 1.1 mg/dL (0.2-1.3); Blood Urea Nitrogen 28 mg/dL (9-20); Calcium 9.0 mg/dL (8.4-10.2); Carbon Dioxide 24 mmol/L (22-30); Chloride 103 mmol/L (98-107); Estimated CRCL calculation 41 ml/min; Estimated Glomerular Filt Rate 49; Glucose 112 mg/dL (65-110); Potassium 4.1 mmol/L (3.4-5.0); Sodium 137 mmol/L (137-145); Total Protein 7.1 g/dL (6.3-8.2)
[2025-04-19 10:48] LABS: NT Pro B Type Natriuretic Pept 3780 pg/mL (19.9-100); Troponin I < 0.012 ng/mL (0.000-0.034)
--- OUTSIDE RECORDS SUMMARY | 2025-04-19 11:24 | XMS_ITS | Encounter Summary ---
Author Organization [facility] Address [address] [place] [address] Care Team Providers Care Boat Tender Name Role Phone Zane Rice DO Primary Care Provider +1 [phone] Encounter Details Date Type Department Care Team (Late st Contact Info) Description 12/24/2023 Lab Requisition [facility] - DermPath Lab [address] [facility] [place] [phone] Barbi Whiteside MD [address] [place] [address] [place] [address] Squamous cell carcinoma of skin [...] on file Legal Sex Male 5:13 PM ACID STRENGTH INSPECTOR Gender Identity Not on file Sexual Orientation Not on file documented as of this encounter Plan of Treatment Not on file documented as of this encounter Procedures Procedure Name Priority Date/Time Associated Diagnosis Comments DERMATOPATHOLOGY Routine 12/24/2023 12:0 0 AM ACID STRENGTH INSPECTOR 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 The epidermal surface is unremarkable. The [...] characteristic determined by the Dermatopathology Laboratory at [facility], directed by Dr. Lance Guaman. These tests need not be, and therefore are not, approved by the [place] Food and Drug Administration. The tests are used for clinical purposes. 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
--- OUTSIDE RECORDS SUMMARY | 2025-04-19 11:24 | XMS_ITS | Clinical Summary ---
Author Organization [employer] [facility] Address [address] [facility] Attn: Epic Prelude ADT RADHA GAITAN [address] Care Team Providers Care Acute Care Nurse Practitioner Name Role Phone Unavailable Primary Care Provider [...] VACCINE (#1) 2025 4, 08/20/2023, 08/06/2022 [place] [address] RX AETNA Medicare Part D RX AETNA Medicare Part D
--- OUTSIDE RECORDS SUMMARY | 2025-04-19 11:24 | XMS_ITS | Encounter Summary ---
Author Organization [facility] Address [facility] [place] [address] Care Team Providers Care Forestry Foreman Name Role Phone Zane Rice DO Primary Care Provider [phone] [phone] Reason for Visit * Reason Onset Date Comments Medication Issue 01/14/2022 Encounter Details Date Type Department Care Team (Late st Contact Info) Description 01/14/2022 Telephone [facility] Dermatology [address] [facility], [place] [address] Stefany Guaman MD [facility] [facility] 3 [place] [address] Medication Issue Social History Tobacco Use Types Packs/Day Years Used Date Smoking Tobacco: Every Day Cigarettes Smokeless Tobacco: Current Alcohol Use Standard Drinks/Week Comments Yes 1 (1 standard drink = 0.6 oz pur e alcohol) Sex and Gender Information Value Date Recorded Sex Assigned at Not on file Legal Sex Male 5:13 PM DIRECTOR SHOPPER MARKETING Gender Identity Not on file Sexual Orientation [...] on filedocumented in this encounter Care Teams Forestry Foreman Relationship Specialty Start Date End Date Zane Rice DO PCP - General 11/07/12 documented as of this encounter
--- OUTSIDE RECORDS SUMMARY | 2025-04-19 11:24 | XMS_ITS | Encounter Summary ---
Author Organization [facility] Address [facility] [place] [address] Care Team Providers Care Barback Name Role Phone Zane Rice DO Primary Care Provider +1 [phone] Encounter Details Date Type Department Care Team (Late st Contact Info) Description 11/18/2023 Lab Requisition [facility] - DermPath Lab [address] [place] [phone] Barbi Whiteside MD [address] [place] [address] [place] [address] Neoplasm of uncertain behavior of skin Social History Tobacco Use Types Packs/Day Years Used Date Smoking Tobacco: Every Day Cigarettes Smokeless Tobacco: Current Alcohol Use Standard Drinks/Week Comments Yes 1 (1 standard drink = 0.6 oz pur e alcohol) Sex and Gender Information Value Date Recorded Sex Assigned at Not on file Legal Sex Male 5:13 PM PLATE FITTER Gender Identity Not on file Sexual Orientation Not on file documented as of this encounter Plan of Treatment Not on file documented as of this encounter Procedures Procedure Name Priority Date/Time Associated Diagnosis Comments DERMATOPATHOLOGY Routine 11/18/2023 3:33 AM PLATE FITTER Neoplasm of uncertain behavior of skin documented in this encounter Results * DERMATOPATHOLOGY (11/18/2023 3:33 AM PLATE FITTER) Case Report Dermatopathology Report Case: [id number] Authorizing Provider: Barbi Whiteside MD Collected: 11/18/2023 03:33 AM Ordering Location: [facility] DermPath Lab Received: 11/19/2023 04:24 PM Pathologist: Reena Winston MD Specimen: Skin, right distal pretibial region 4:19 PM [facility] DERMATOPATHOLOGY LABORATORY Final Diagnosis Specimen A. SKIN, right distal pretibial region: SQUAMOUS CELL CARCINOMA, WELL DIFFERENTIATED (C44.722) 4:19 PM [facility] DERMATOPATHOLOGY LABORATORY at 1618 PLATE FITTER Clinical History Squamous Cell Carcinoma vs. Scar 4:19 PM [facility] DERMATOPATHOLOGY LABORATORY Gross Description Specimen A: Received is one formalin filled container labeled with the patient's name and designated right distal pretibial region. The specimen consists of a shave biopsy measuring 9x8x2 mm. Jar 0. 4:19 PM [facility] DERMATOPATHOLOGY LABORATORY Microscopic Description Specimen A. SKIN, right distal pretibial region: Arising in the epidermis and extending into the dermis there are irregularly shaped aggregates of keratinocytes showing evidence of premature cornification. 4:19 PM [facility] DERMATOPATHOLOGY LABORATORY Disclaimer An external and internal positive and negative controls are appropriate for the histochemical, immunohistochemical and immunofluorescence stain(s) in this case (if any), except where stated explicitly. The performance characteristics of the stain(s) cited in this report were developed and its performance characteristic determined by the Dermatopathology Laboratory at [facility], directed by Dr. Lance Guaman. These tests need not be, and therefore are not, approved by the [place] Food and Drug Administration. The tests are used for clinical purposes. Billing Codes Specimen Charges Stain Charges 54204 1 4 4:19 PM [facility] DERMATOPATHOLOGY LABORATORY Embedded Images 4:19 PM [facility] DERMATOPATHOLOGY LABORATORY Pathology/Cytolo gy TISSUE SPECIMEN FROM SKIN / Unknown 11/18/2023 3:33 AM PLATE FITTER 11/19/2023 4:24 PM [facility] us Barbi Whiteside MD LAB - PATHOLOGY/CYTOLOGY ORDERAB LES Final Result DERMATOPATHOLOGY LABORATORY [facility] - Department of Dermatology [address] [phone] documented in this encounter Visit Diagnoses Diagnosis Neoplasm of uncertain behavior of skin documented in this encounter Care Teams Barback Relationship Specialty Start Date End Date Zane Rice DO PCP - General 11/07/12 documented as of this encounter
--- OUTSIDE RECORDS SUMMARY | 2025-04-19 11:24 | XMS_ITS | Clinical Summary ---
Author Organization [facility] [address] Address [address] [place] [address] Care Team Providers Care Straw Baler Name Role Phone Zane Rice DO Primary Care Provider +1- [phone] Allergies No known active allergies Medications coenzyme T11-iledknz E (CO Q-10, WITH VIT E,) 100-5 mg-unit capsule 0 0 5 Active kefiydcs-rpji-uob montse gluconat (multivitamin with iron-minerals) 9 mg [...] Department Care Team Description 03/14/2025 Orders Only [facility] Cardiology [address] [facility] [address] [place] [address] ProviderVashti MD 03/13/2025 11:00 AM CDT Office Visit [facility] Cardiology at [address] [place] [address] Jarvis Greenberg MD Permanent atrial fibrillation (HCC) (Primary Dx) from Last 3 Months Medical History Medical History Date Comments Hx Other Medical atrial fibrilla tion; Comments: [facility] 11/20/2014 - Hx Other Medical tobacco use; Co mments: [facility] 11/20/2014 - Hx Other Medical syncope; Commen ts: [facility] 11/20/2014 - Social History Tobacco [...] on file Legal Sex Male 3:36 AM RN CHARGE Gender Identity Not on file Sexual Orientation [...] EXTERNAL LAB from Last 3 [place] [address] AETNA MEDICARE AETNA MEDICARE Care Teams Straw Baler Relationship Specialty Start Date End Date Zane Rice DO PCP - General 02/12/15
--- OUTSIDE RECORDS SUMMARY | 2025-04-19 11:24 | XMS_ITS | Clinical Summary ---
Author Organization [facility] [employer] Address [address] [place] [place] [address] Care Team Providers Care Fiber Optic Technician Name Role Phone Zane Rice DO Primary Care Provider Source Comments [facility] [employer],non-owned Affiliates and Associated Physician Practices is amultiple site organization consisting of ambulatory clinics and hospital sitesin [place], [place], [place] and [place]. This disclosure is being madepursuant to the Care Everywhere program and may not contain all information available regarding this patient. 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 PLATEMAKER Gender Identity Not on file Sexual Orientation Not on file Last Filed Vital Signs Vital Sign Reading Time Taken Comments Blood Pressure 128/76 09/17/2015 2:44 PM PHOTOGRAPHIC PLATEMAKER Pulse 54 09/17/2015 2:44 PM PHOTOGRAPHIC PLATEMAKER Temperature - - Respiratory Rate - - [...] age to complete this topic Insurance AET Member Subscriber Plan / Payer (Ef fective 2021-Present) Name:Carito Wilkinson Relation to Subscriber:Self Name:CARITO WILKINSON Payer ID:[id number] ([facility] Type:Medicare-Managed Care Address: [id number] [place] [phone] [place] [address] AETNA AETNA AETNA AETNA AETNA AETNA AETNA AETNA AETNA Care Teams Fiber Optic Technician Relationship Specialty Start Date End Date Zane Rice DO PCP - General 11/07/12
--- OUTSIDE RECORDS SUMMARY | 2025-04-19 11:24 | XMS_ITS | Referral Summary ---
Author Organization [facility] [address] [facility] [address] Address [address] [place] [address] Care Team Providers Care Fire Captain Name Role Phone Zane Rice DO Primary Care Provider [phone] Encounters Date Type Department Care Team Description 03/14/2025 Orders Only [facility] Cardiology [address] [place] [address] [address] [place] [address] Vashti Funes MD 03/13/2025 11:00 AM CDT Office Visit [facility] Cardiology at [address] [place] [address] Jarvis Greenberg MD Permanent atrial fibrillation (HCC) (Primary Dx) from Last 3 Months Allergies No known active allergies Medications coenzyme T25-uodlszj E (CO Q-10, WITH VIT E,) 100-5 mg-unit capsule 0 0 5 Active ekzxswxz-fmsg-ufc montse gluconat (multivitamin with iron-minerals) 9 mg [...] on file Legal Sex Male 3:36 AM RECORD PRODUCER Gender Identity Not on file Sexual Orientation [...] EXTERNAL LAB from Last 3 [place] [address] [facility] [place] [address] [facility] [employer] Care Teams Fire Captain Relationship Specialty Start Date End Date Zane Rice DO [facility] - General 02/12/15
--- OUTSIDE RECORDS SUMMARY | 2025-04-19 11:24 | XMS_ITS | Encounter Summary ---
Author Organization [facility] Health Address [facility] [place] [address] Care Team Providers Care Stone Sandblaster Name Role Phone Zane Rice DO Primary Care Provider [phone] Encounter Details Date Type Department Care Team (Late st Contact Info) Description 08/13/2023 Lab Requisition [facility] - DermPath Lab [address] [place] [id number] Kaley Paula PA-C [address] [place] [phone] Neoplasm of uncertain behavior of skin Social History Tobacco Use Types Packs/Day Years Used Date Smoking Tobacco: Every Day Cigarettes Smokeless Tobacco: Current Alcohol Use Standard Drinks/Week Comments Yes 1 (1 standard drink = 0.6 oz pur e alcohol) Sex and Gender Information Value Date Recorded Sex Assigned at Not on file Legal 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 Gender Identity Not on file Sexual Orientation Not on file documented as of this encounter Plan of Treatment Not on file documented as of this encounter Procedures Procedure Name Priority Date/Time Associated Diagnosis Comments DERMATOPATHOLOGY Routine 08/13/2023 12:0 0 AM CDT Neoplasm of uncertain behavior of skin documented in this encounter Results * DERMATOPATHOLOGY (08/13/2023 12:00 AM CDT) Case Report Dermatopathology Report Case: [id number] Authorizing Provider: Kaley Paula PA-C Collected: 08/13/2023 12:00 AM Ordering Location: [facility] DermPath Lab Received: 08/17/2023 06:20 AM Pathologist: [...] purposes. Billing Codes Specimen Charges Stain Charges [id number] 1 1 1 1 3 2:20 PM [...] PATHOLOGY/CYTOLOGY GERBERE HONG Final Result DERMATOPATHOLOGY LABORATORY [facility] - Department of Dermatology [facility] [address] [place] [address], [address] [place] [address], [facility] [phone] documented in this encounter Visit Diagnoses Diagnosis Neoplasm of uncertain behavior of skin documented in this encounter Care Teams Stone Sandblaster Relationship Specialty Start Date End Date Zane Rice DO PCP - General 11/07/12 documented as of this encounter
--- OUTSIDE RECORDS SUMMARY | 2025-04-19 11:24 | XMS_ITS | Encounter Summary ---
Author Organization [facility] Address [facility] [facility] [place] [address] Care Team Providers Care Blind Eyeletter Name Role Phone Zane Rice DO Primary Care Provider [phone] Encounter Details Date Type Department Care Team (Late st Contact Info) Description 10/20/2024 Lab Requisition [facility] - DermPath Lab [address] [place] [id number] Raji Jean Baptiste MD [facility] DERMATOLOGY [address] [place] [phone] Neoplasm of uncertain behavior of skin Social History Tobacco Use Types Packs/Day Years Used Date Smoking Tobacco: Every Day Cigarettes Smokeless Tobacco: Current Alcohol Use Standard Drinks/Week Comments Yes 1 (1 standard drink = 0.6 oz pur e alcohol) Sex and Gender Information Value Date Recorded Sex Assigned at Not on file Legal Sex Male 5:13 PM SUSTAINABILITY MANAGER Gender Identity Not on file Sexual Orientation Not on file documented as of this encounter Plan of Treatment Not on file documented as of this encounter Procedures Procedure Name Priority Date/Time Associated Diagnosis Comments DERMATOPATHOLOGY Routine 10/20/2024 3:33 AM SUSTAINABILITY MANAGER Neoplasm of uncertain behavior of skin documented in this encounter Results * DERMATOPATHOLOGY (10/20/2024 3:33 AM SUSTAINABILITY MANAGER) Case Report Dermatopathology Report Case: [id number] Authorizing Provider: Raji Jean Baptiste MD Collected: 10/20/2024 03:33 AM Ordering Location: [facility] - Received: 10/24/2024 12:59 PM DermPath Lab Pathologist: Carolina Mazariegos MD Specimen: Skin, right lateral lower leg 3:35 PM [facility] DERMATOPATHOLOGY LABORATORY Final Diagnosis Specimen A. SKIN, right lateral lower leg: SQUAMOUS CELL CARCINOMA IN SITU (CUEVAS'S DISEASE) (D04.71) 3:35 PM SUSTAINABILITY MANAGER DERMATOPATHOLOGY LABORATORY at 1535 SUSTAINABILITY MANAGER Clinical History Squamous Cell Carcinoma 3:35 PM SUSTAINABILITY MANAGER DERMATOPATHOLOGY LABORATORY Gross Description Specimen A: Received is one formalin filled container labeled with the patient's name and designated right lateral lower leg. The specimen consists of a shave biopsy measuring 8x7x4 mm. Jar 0. 3:35 PM [facility] DERMATOPATHOLOGY LABORATORY Microscopic Description Specimen A. SKIN, right lateral lower leg: The epidermis shows parakeratosis, full thickness disorderly maturation of keratinocytes, mitoses at different levels, and dyskeratotic cells. 3:35 PM [facility] DERMATOPATHOLOGY LABORATORY Disclaimer An external and internal positive and negative controls are appropriate for the histochemical, immunohistochemical and immunofluorescence stain(s) in this case (if any), except where stated explicitly. The performance characteristics of the stain(s) cited in this report were developed and its performance characteristic determined by the Dermatopathology Laboratory at [facility], directed by Dr. Lance Guaman. These tests need not be, and therefore are not, approved by the [place] Food and Drug Administration. The tests are used for clinical purposes. Billing Codes Specimen Charges Stain Charges 75493 1 3:35 PM SUSTAINABILITY MANAGER DERMATOPATHOLOGY LABORATORY Embedded Images 3:35 PM [facility] DERMATOPATHOLOGY LABORATORY Pathology/Cytolo gy TISSUE SPECIMEN FROM SKIN / Unknown 10/20/2024 3:33 AM SUSTAINABILITY MANAGER 10/24/2024 12:59 PM SUSTAINABILITY MANAGER us Raji Jean Baptiste MD LAB - PATHOLOGY/CYTOLOGY ORDE HONG Final Result DERMATOPATHOLOGY LABORATORY [facility] - Department of Dermatology [facility] [address] [facility], [address]rd [address] [phone] documented in this encounter Visit Diagnoses Diagnosis Neoplasm of uncertain behavior of skin documented in this encounter Care Teams Blind Eyeletter Relationship Specialty Start Date End Date Zane Rice DO PCP - General 11/07/12 documented as of this encounter
--- NOTE | 2025-04-19 11:55 | ED_ITS ---
HPI - Weakness General Chief complaint: Weakness Stated complaint: weakness Time Seen by Provider: 04/19/25 10:54 Source: patient Mode of arrival: ambulatory Limitations: no limitations History of Present Illness HPI Narrative: Patient is a 79 y/o male, with PMH of AFIB on xarelto, HTN, COPD, who presents to the ED with c/o weakness, cough. Patient reports over the past couple of days, has been feeling very weak, decreased appetite. Reports cough, fevers, chills, SOB. Denies chest pain, sick contacts. Denies pain or swelling in his legs. Denies nausea, vomiting. Denies focal weakness or numbness. Related Data Home Medications ?Medication ?Instructions ?Recorded ?Confirmed ?Last Taken ?Type coenzyme Q10-red yeast rice 60 1 cap PO 10/19/19 02/08/25 04/18/25 History mg-600 mg capsule metoprolol tartrate 25 mg tablet 12.5 mg PO BID 01/30/25 04/19/25 04/18/25 History rivaroxaban 20 mg tablet (Xarelto) 20 mg PO DAILY 02/08/25 04/19/25 04/18/25 History Allergies Allergy/AdvReac Type Severity Reaction Status Date / Time No Known Allergies Allergy Verified 04/19/25 10:44 Review of Systems 2 Review of Systems: All systems reviewed & are unremarkable except as noted in HPI. All systems reviewed & are unremarkable except as noted in HPI and below PMFSH Past Medical History Medical History Skin cancer Leukocytosis Anemia Hyperglycemia HLD (hyperlipidemia) COPD (chronic obstructive pulmonary disease) HTN (hypertension) A-fib Surgical History Surgical History No history of previous surgery Family History Family History Father Family history of coronary artery disease Mother Acute myocardial infarction Family history of ovarian cancer Sibling Family history of ovarian cancer Heart disease Other Diabetes mellitus Social History Social History Social History: caffeine-coffee Smoking packs per day: 0.5 Smoking cigarettes per day: 10.0 Years smoked: 61 Smoking pack-years: 30.50 Smoking status: Current some day smoker Tobacco type: cigarettes Additional smoking assessment comments: occasional smoker Alcohol intake: never Substance use: never Substance use type: does not use Do You Feel Safe in your Home?: Yes Lack of Transportation: No Lack of Food: Never True Current Housing: I Have Housing Concerned About Future Housing: No Difficulty Paying Gas/Electric Bills: No Difficulty Paying for Meds: No Currently Unemployed: No Education: Associate Degree Difficulty w/ Childcare or Family Care: No Spiritual care concerns: No Exam 2 Narrative: GENERAL: Elderly, fairly well appearing, non-toxic, in no acute distress. HEAD: Normocephalic, atraumatic. RESPIRATORY: Airway patent, respirations nonlabored. Slight rhonchi in R base bilaterally. CARDIOVASCULAR: Tachycardic with irregular rhythm without murmurs, rubs, or gallops. Peripheral pulses intact MUSCULOSKELETAL: Moves all extremities. No gross deformities. No peripheral edema. No calf tenderness. SKIN: Warm, dry, normal color. NEURO: A&O X3. Speech clear. No ataxic movements. PSYCHIATRIC: Appropriate mood and affect. Normal interaction. Course Vital Signs Vital signs: Vital Signs Temperature 98.4 F 04/19/25 10:04 Pulse Rate 125 H 04/19/25 10:04 Respiratory Rate 18 04/19/25 10:04 Blood Pressure 124/83 04/19/25 10:04 Pulse Oximetry 96 04/19/25 10:04 Oxygen Delivery Room Air 04/19/25 10:04 Temperature 98.2 F 04/19/25 14:40 Pulse Rate 113 H 04/19/25 18:00 Respiratory Rate 34 H 04/19/25 17:57 Blood Pressure 113/71 04/19/25 18:00 Pulse Oximetry 100 04/19/25 17:57 Oxygen Delivery Nasal Cannula 04/19/25 17:57 Oxygen Flow Rate 1 04/19/25 17:57 MDM - Weakness MDM Narrative Medical decision making narrative: Patient presented to ED with weakness, cough, shortness breath, fevers. Patient tachycardic, tachypneic, borderline febrile upon arrival. Oxygen stable on room air. Blood pressure is stable. CBC with white blood cell count of 15.5. Neutrophil predominance. No bandemia. CMP with a slight SHIRA. Baseline creatinine around 1.2. Today 1.39. Patient is meeting sepsis criteria based on vital signs and leukocytosis. 30 cc/kg fluid bolus was ordered. Patient does appear very dry on exam. No evidence of fluid overload on exam. Lactic acid within normal range at 1.2. Blood cultures were obtained. UA with evidence of dehydration, no signs of infection. Chest x- ray showing airspace opacity in right lower lobe. Recommended CT chest non-con. CT chest showing evidence of right lower lobe pneumonia. Also showing findings in left renal pelvis concerning for possible urethral cancer. Recommended urogram. This was ordered. EKG showing AFib with RVR. Patient does have history of AFib, on Xarelto. Also takes metoprolol at home. Given 5 mg dose of IV Lopressor as well as fluid resuscitation. Heart rate has improved slightly. Low 110s. BP remaining stable. Started on Rocephin and azithromycin for CAP. HR persistently in the 120s despite fluid resuscitation. Remains in AFIB. Cardizem drip was started. Patient will be admitted for further evaluation. Discussed case with Mckenzie Cotton PROFILE STITCHING MACHINE OPERATOR hospitalist, accepted patient for admission to IMU. Patient in agreement with plan and need for admission. Medical Records Attestation: I reviewed the patient's medical records. Lab Data Attestation: I reviewed the patient's lab results. 04/19/25 10:18 04/19/25 10:18 Labs: Lab Results 04/19/25 04/19/25 04/19/25 Range/Units 10:18 12:38 13:37 WBC 15.5 H (4.5-10.0) K/mm3 RBC 4.42 L (4.6-6.20) M/mm3 Hgb 14.7 (14.0-18.0) g/dL Hct 44.3 (42.0-52.0) % MCV 100.2 H (80-100) fl MCH 33.3 (26-34) pg MCHC 33.2 (32-36) g/dl RDW 14.8 H (11.5-14.5) % Plt Count 229 (150-375) k/mm3 MPV 8.6 (7.4-10.4) fl Immature Gran % (Auto) 0.6 H (0-0.5) % Neut % (Auto) 76.7 H (45.5-73.1) % Lymph % (Auto) 9.6 L (18.3-44.2) % [place] % (Auto) 9.2 H (2.6-8.5) % Eos % (Auto) 3.6 (0-4.4) % Baso % (Auto) 0.3 (0.2-1.2) % Lymph # (Auto) 1.48 (0.9-3.2) K/mm3 [place] # (Auto) 1.4 H (0.1-0.6) K/mm3 Eos # (Auto) 0.6 H (0-0.3) K/mm3 Baso # (Auto) 0.0 (0.0-0.1) K/mm3 Abs Immat Gran (auto) 0.09 H (0.00-0.031) K/mm3 Absolute Neuts (auto) 11.9 H (1.3-6.7) K/mm3 Absolute Nucleated RBC 0.000 (0.0-0.012) K/mm3 Nucleated RBC % 0.0 (0.0-0.2) % PT 25.6 H (11.1-14.7) Seconds INR 2.4 APTT 48.0 H (22.3-36.8) Seconds Sodium 137 (137-145) mmol/L Potassium 4.1 (3.4-5.0) mmol/L Chloride 103 (98-107) mmol/L Carbon Dioxide 24 (22-30) mmol/L Anion Gap 10 (4-12) mmol/L BUN 28 H (9-20) mg/dL Creatinine 1.39 H (0.7-1.3) mg/dL Estim Creat Clear Calc 41 ml/min Estimated GFR 49 L (59 - ) Glucose 112 H (65-110) mg/dL Lactic Acid 1.2 (0.7-2.0) mmol/L Calcium 9.0 (8.4-10.2) mg/dL Total Bilirubin 1.1 (0.2-1.3) mg/dL AST 25 (17-59) U/L ALT 20 (6-50) U/L Alkaline Phosphatase 74 (38-126) U/L Troponin I < 0.012 (0.000-0.034) ng/mL NT-Pro-B Natriuret Pep 3780 H (19.9-100) pg/mL Total Protein 7.1 (6.3-8.2) g/dL Albumin 4.0 (3.5-5.1) g/dL Urine Color Yellow (Yellow) Urine Appearance Clear (Clear) Urine pH 5.5 (5.0-9.0) Ur Specific [place] > 1.045 H (1.001-1.035) Urine Protein 1+ H (Negative) mg/dL Urine Glucose (UA) Negative (Negative) mg/dL Urine Ketones 1+ H (Negative) mg/dL Ur Blood (Man) Trace (Negative) Urine Nitrate Negative (Negative) Urine Bilirubin Negative (Negative) Urine Urobilinogen 0.2 (<2.0) mg/dL Leukocyte Esterase Rfl Negative (Negative) MARISA/UL Urine RBC 6-10 H (0-2) /hpf Urine WBC 0-5 (0-3) /hpf Ur Squamous Epith Cells None seen (Few) /hpf Urine Bacteria None seen /hpf Urine Casts 3-5 Imaging Data Attestation: I personally reviewed and interpreted this imaging study as follows: Radiologist's impression: ITS Impressions Chest X-Ray 04/19/25 10:48 IMPRESSION: Airspace opacity without air bronchograms in the superior segment of the right lower lobe, for which noncontrast enhanced CT examination of the chest is recommended for further evaluation. Chest CT 04/19/25 12:23 IMPRESSION: 1. Moderate emphysema with right lower lobe pneumonia. 2. 3 small calcifications and increased density in the left renal pelvis which could represent nephrolithiasis and associated clot but also raises concern for urothelial carcinoma. Correlate with urinalysis and would recommend CT angiogram for further evaluation. ECG Data EKG #1: Attestation: I personally reviewed and interpreted this ECG as follows: ECG completion date: 04/19/25 ECG completion time: 10:10 EKG Interpretation: tachycardia (115), atrial fibrillation (RVR) and non- specific ST changes Discharge Plan Discharge Clinical Impression: Atrial fibrillation with rapid ventricular response Sepsis Qualifiers: Sepsis type: sepsis due to unspecified organism Sepsis acute organ dysfunction status: unspecified Qualified Code(s): A41.9 - Sepsis, unspecified organism Pneumonia Qualifiers: Pneumonia type: due to unspecified organism Laterality: right Lung location: l ower lobe of lung Qualified Code(s): J18.9 - Pneumonia, unspecified organism Patient Disposition: Still a Patient Condition: Stable
[2025-04-19] MEDS: SODIUM CHLORIDE 0.9% IV 200 ML 999 ML IV CONT (12:31)
[2025-04-19] MEDS: ACETAMINOPHEN 500 MG TABLET 1000 MG PO (12:31)
[2025-04-19] MEDS: METOPROLOL TARTRATE INJ 5 MG/5 ML VIAL IV PUSH (12:32)
[2025-04-19] MEDS: SODIUM CHLORIDE 0.9% IV 1,000 ML 999 ML IV CONT ×2 (12:35)
[2025-04-19 14:00] LABS: Add Urine Microscopic? YES; Appearance Urine Clear (Clear); Glucose Urine UA Negative (Negative); Leukocyte Esterase Ur Negative LEU/UL (Negative); Nitrate Urine Negative (Negative); Specific Grav Ur > 1.045 (1.001-1.035)
[2025-04-19] MEDS: dilTIAZem 100 MG/100 ML 100 MG/100 ML BAG IV CONT (14:34)
--- NOTE | 2025-04-19 14:44 | P.HP_ITS ---
H&P: HPI History of Present Illness Date/Time: 04/19/25 14:44 Chief Complaint: Shortness of breath and tachycardia Narrative: 71-year-old male with past medical history of COPD, hypertension, hyperlipidemia, skin cancer and atrial fibrillation presents the hospital with shortness of breath and tachycardia. Patient states that he noticed that his heart rate was 120 yesterday and got that it was abnormal because he had been taking his home medications of metoprolol. Patient also complains of a fever so he came to the emergency room today. Patient states that he feels slightly better from what he did earlier today. Patient complains of cough however he is unable to get anything up from his lungs. He states that he had fever and chills this morning. Patient denies nausea vomiting. Lab work showed leukocytosis of 15.5, INR of 2.4, BUN of 28, creatinine of 1.39 with baseline being around 1.2 GFR 49, BNP 3780, UA is not infective. Chest x- ray shows airspace opacity without air bronchograms in the superior segment of the right lower lobe, for which noncontrast enhanced CT examination of the chest is recommended for further evaluation. CT shows moderate emphysema with right lower lobe pneumonia and. 3 small calcifications and increased density in the left renal pelvis which could represent nephrolithiasis and associated clot but also raises concern for urothelial carcinoma. Correlate with urinalysis and would recommend CT angiogram for further evaluation. Blood cultures pending. EKG with atrial fibrillation rate of 115, patient given IV metoprolol without results started on diltiazem drip. Patient also given sepsis bolus. Review of Systems Review of Systems: 12 systems were reviewed and are negativ e except for as per HPI. [facility] Past Medical History Medical History Skin cancer Leukocytosis Anemia Hyperglycemia HLD (hyperlipidemia) COPD (chronic obstructive pulmonary disease) HTN (hypertension) A-fib Surgical History Surgical History No history of previous surgery Family History Family History Father Family history of coronary artery disease Mother Acute myocardial infarction Family history of ovarian cancer Sibling Family history of ovarian cancer Heart disease Other Diabetes mellitus Social History Social History Social History: caffeine-coffee Smoking packs per day: 0.5 Smoking cigarettes per day: 10.0 Years smoked: 61 Smoking pack-years: 30.50 Smoking status: Current some day smoker Tobacco type: cigarettes Additional smoking assessment comments: occasional smoker Alcohol intake: never Substance use: never Substance use type: does not use Do You Feel Safe in your Home?: Yes Lack of Transportation: No Lack of Food: Never True Current Housing: I Have Housing Concerned About Future Housing: No Difficulty Paying Gas/Electric Bills: No Difficulty Paying for Meds: No Currently Unemployed: No Education: Associate Degree Difficulty w/ Childcare or Family Care: No Spiritual care concerns: No Meds Home Medications and Allergies Home Medications ?Medication ?Instructions ?Recorded ?Confirmed ?Type coenzyme Q10-red yeast rice 60 1 cap PO DAILY 10/19/19 04/19/25 History mg-600 mg capsule albuterol sulfate 90 mcg/actuation 2 puff inhalation Q4-6H PRN 01/15/21 04/19/25 Rx aerosol inhaler (Ventolin HFA) shortness of breath or wheezing #8.5 grams metoprolol tartrate 25 mg tablet 12.5 mg PO BID 01/30/25 04/19/25 History rivaroxaban 20 mg tablet (Xarelto) 20 mg PO DAILY 02/08/25 04/19/25 History glycopyrrolate 9 mcg-formoterol 2 inh inhalation BID #32.1 grams 03/19/25 04/19/25 Rx 4.8 mcg HFA aerosol inhaler (Bevespi Aerosphere) atorvastatin 10 mg tablet See Rx Instructions .Route 04/16/25 04/19/25 Rx .COMPLEX #90 tabs Allergies Allergy/AdvReac Type Severity Reaction Status Date / Time No Known Allergies Allergy Verified 04/19/25 10:44 Vital Signs Vital Signs - 24 hr 04/19/25 10:04 04/19/25 10:15 04/19/25 10:45 Temperature 98.4 F 100.1 F H Pulse Rate 125 H 125 H 112 H Respiratory Rate 18 27 H Blood Pressure 124/83 112/83 Pulse Oximetry 96 95 Oxygen Delivery Room Air 04/19/25 11:45 04/19/25 12:00 04/19/25 12:32 Temperature Pulse Rate 117 H 117 H 120 H Respiratory Rate 29 H 26 H Blood Pressure 120/96 H 112/81 Pulse Oximetry Oxygen Delivery 04/19/25 12:42 04/19/25 12:45 04/19/25 13:15 Temperature Pulse Rate 109 H 113 H 109 H Respiratory Rate 19 27 H 26 H Blood Pressure 99/75 L 114/76 98/72 L Pulse Oximetry 93 92 Oxygen Delivery 04/19/25 13:30 04/19/25 14:27 04/19/25 14:30 Temperature Pulse Rate 117 H 108 H 115 H Respiratory Rate 25 H 24 H 33 H Blood Pressure 102/80 108/77 Pulse Oximetry 94 95 95 Oxygen Delivery 04/19/25 14:34 04/19/25 14:37 04/19/25 14:40 Temperature 98.2 F 98.2 F Pulse Rate 114 H 110 H Respiratory Rate 18 Blood Pressure 108/77 102/72 Pulse Oximetry 90 Oxygen Delivery Exam Narrative: General: well appearing, appears stated age. HEENT: normocephalic, atraumatic. Mucous membranes moist. EOMI, PERRLA, bilateral sclera anicteric, no conjunctival injection. Neck supple without JVD, lymphadenopathy, or bruit. Respiratory: Course to ascultation bilaterally. Cardiovascular: Regular rate and rhythm, normal S1-S2 upon ascultation. No murmurs, rubs, or clicks. PMI is nondisplaced, capillary refill less than 3 second. Abdomen: Soft, round, no pulsatile masses, nondistended and nontender. No rebound, no guarding. No CVA tenderness, no hepatosplenomegaly. Bowel sounds present to all four quadrants. No high pitch or tinkling sounds, resonant to percussion. Extremities: No cyanosis, clubbing, Pulses are palpable 2/2. Active ROM to all four extremities. Plus two pedal edema Neuro: Alert and orientated x 4. PERRLA. Cranial nerves 2-12 intact without focal deficit. Skin: Warm, dry, and intact, without rash, erythema, or lesion. Psych: pleasant, cooperative, normal speech, normal affect, no hallucinations, no dysarthia H&P: Results Labs Labs: Short CBC 04/19/25 Range/Units 10:18 WBC 15.5 H (4.5-10.0) K/mm3 Hgb 14.7 (14.0-18.0) g/dL Hct 44.3 (42.0-52.0) % Plt Count 229 (150-375) k/mm3 BMP 04/19/25 10:18 Sodium 137 Potassium 4.1 Chloride 103 Carbon Dioxide 24 BUN 28 H Creatinine 1.39 H Glucose 112 H Calcium 9.0 Cardiac Enzymes 04/19/25 Range/Units 10:18 Troponin I < 0.012 (0.000-0.034) ng/mL Liver Function 04/19/25 Range/Units 10:18 Total Bilirubin 1.1 (0.2-1.3) mg/dL AST 25 (17-59) U/L ALT 20 (6-50) U/L Alkaline Phosphatase 74 (38-126) U/L Albumin 4.0 (3.5-5.1) g/dL Urine 04/19/25 Range/Units 13:37 Urine Color Yellow (Yellow) Urine Appearance Clear (Clear) Urine pH 5.5 (5.0-9.0) Ur Specific Meherrin > 1.045 H (1.001-1.035) Urine Protein 1+ H (Negative) mg/dL Urine Glucose (UA) Negative (Negative) mg/dL Assessment and Plan Assessment and plan (1) Pneumonia: Qualifiers: Laterality: right Lung location: lower lobe of lung Pneumonia type: due to unspecified organism Qualified Code(s): J18.9 - Pneumonia, unspecified organism Code(s): J18.9 - Pneumonia, unspecified organism Status: Acute Assessment and Plan: ABG with hypoxia BiPAP Repeat ABG in a.m. IV Rocephin and azithromycin Guaifenesin (2) Sepsis: Qualifiers: Sepsis acute organ dysfunction status: unspecified Sepsis type: sepsis due to unspecified organism Qualified Code(s): A41.9 - Sepsis, unspecified organism Code(s): A41.9 - Sepsis, unspecified organism Status: Acute Assessment and Plan: Likely secondary to above Blood cultures pending Sepsis bolus given in ED (3) Atrial fibrillation with rapid ventricular response: Code(s): I48.91 - Unspecified atrial fibrillation Status: Acute Assessment and Plan: Patient is compliant with medications likely secondary to infection Diltiazem drip Telemetry monitoring Hopefully will be able to convert to oral medications the morning (4) Renal mass: Code(s): N28.89 - Other specified disorders of kidney and ureter Status: Acute Assessment and Plan: CT pelvis recommending direct visualization of mass Nephro consulted pending recommendations (5) CKD (chronic kidney disease): Code(s): N18.9 - Chronic kidney disease, unspecified Status: Acute Assessment and Plan: Creatinine slightly elevated above baseline IVF (6) HLD (hyperlipidemia): Qualifiers: Hyperlipidemia type: unspecified Qualified Code(s): E78.5 - Hyperlipidemia, unspecified Code(s): E78.5 - Hyperlipidemia, unspecified Status: Acute Assessment and Plan: Continue home Lipitor Quality VTE Prophylaxis VTE prophylaxis: mechanical ordered and pharmacologic ordered Hospitalist MIPS Advance Care Plan I have confirmed that the patient's Advanced Care Plan is present, code status is documented, or surrogate decision maker is listed in patient medical record.: Yes Medication Reconciliation I have utilized all available resources to obtain, update and review the patients current medications (includes all prescriptions, OTC, herbals, cannabis, and nutritional supplements).: Yes
[2025-04-19] MEDS: AZITHROMYCIN 500 MG/NS 250 ML 500 MG/250 ML BAG 250 MG IVPB (15:18)
--- NOTE | 2025-04-19 15:24 | PC.NURSE ---
heart healthly diet ordered
--- NOTE | 2025-04-19 17:04 | ADMGEN ---
This patient, Zeke Wilkinson, was admitted to Intensive Care Unit-6. Patient/family oriented to hospital policies and general routines including ID bracelet, bed and alarms, visiting hours, pain management, procedures, bathroom and other care routines, personal items, smoking policy, room service/diet, and visiting hours. Information on how to activate the Rapid Response Team has been discussed. Patient/Family are encouraged to report perceived risks to care and to ask questions if they do not understand what they are told or what they should do.
[2025-04-19] MEDS: guaiFENesin 12 HR 600 MG TABCR 1200 MG PO (20:03)
[2025-04-19] MEDS: ALBUTEROL SULFATE (*SP) AEROSOL 1 PUFF 2 PUFF INHALATION (20:41)
[2025-04-19 21:36] LABS: Alveolar/Arterial O2 Gradient 86.6 mmHg; Fractional Inspired Oxygen 24 %; HCO3 ABG 20.3 mEq/l (22.0-26.0); Oxygen Content ABG 17.6 %vol (16.0-22.0); Oxygen Saturation ABG 92.4 % (95.0-100.0); PCO2 ABG 24.7 mmHg (35.0-45.0); PO2 ABG 55.1 mmHg (80.0-100.0); PO2 FiO2 Ratio Arterial Blood 2.30 %
[2025-04-19 21:40] LABS: Liters per Minute 1.0 LPM; Modified Allen's Test Pass; Site Drawn LEFT RADIAL
[2025-04-19] MEDS: SENNOSIDES 8.6 MG TABLET PO (22:37)
[2025-04-19 22:53] LABS: Alveolar/Arterial O2 Gradient 132.9 mmHg; Fractional Inspired Oxygen 32 %; HCO3 ABG 18.9 mEq/l (22.0-26.0); Oxygen Content ABG 18.7 %vol (16.0-22.0); Oxygen Saturation ABG 95.3 % (95.0-100.0); PCO2 ABG 24.1 mmHg (35.0-45.0); PO2 ABG 67.1 mmHg (80.0-100.0); PO2 FiO2 Ratio Arterial Blood 2.10 %
[2025-04-19 22:56] LABS: Liters per Minute 3.0 LPM; Modified Allen's Test Pass; Site Drawn LEFT RADIAL
[2025-04-19] MEDS: ACETAMINOPHEN 325 MG TABLET 650 MG PO (23:22)
[2025-04-20] VITALS (34 sets, daily range): BP systolic 92–133; BP diastolic 55–81; PULSE 79–111; RESP 15–27; TEMP 36.1–38.3; O2SAT 92–100
[2025-04-20] MEDS: dilTIAZem 100 MG/100 ML 100 MG/100 ML BAG 10 MG IV CONT (00:42)
[2025-04-20 04:09] LABS: Hematocrit 39.7 % (42.0-52.0); Hemoglobin 13.0 g/dL (14.0-18.0); Immature Granulocyte Percent A 0.6 % (0-0.5); Lymphocytes Absolute Auto 1.36 K/mm3 (0.9-3.2); Mean Corpuscular HGB Conc 32.7 g/dl (32-36); Mean Corpuscular Hemoglobin 33.1 pg (26-34); Mean Corpuscular Volume 101.0 fl (80-100); Nucleated Red Blood Cells Absolute Auto 0.000 K/mm3 (0.0-0.012); Nucleated Red Blood Cells Perc 0.0 % (0.0-0.2); Platelet Count Result 221 k/mm3 (150-375); Red Blood Count 3.93 M/mm3 (4.6-6.20); White Blood Count 17.2 K/mm3 (4.5-10.0)
[2025-04-20 04:20] LABS: Anion Gap 11 mmol/L (4-12); Blood Urea Nitrogen 31 mg/dL (9-20); Calcium 8.5 mg/dL (8.4-10.2); Carbon Dioxide 16 mmol/L (22-30); Chloride 108 mmol/L (98-107); Estimated CRCL calculation 46 ml/min; Estimated Glomerular Filt Rate 56; Glucose 135 mg/dL (65-110); Potassium 4.1 mmol/L (3.4-5.0); Sodium 135 mmol/L (137-145)
[2025-04-20 05:36] LABS: Alveolar/Arterial O2 Gradient 101.4 mmHg; Fractional Inspired Oxygen 32 %; HCO3 ABG 19.7 mEq/l (22.0-26.0); Oxygen Content ABG 18.8 %vol (16.0-22.0); Oxygen Saturation ABG 97.3 % (95.0-100.0); PCO2 ABG 30.0 mmHg (35.0-45.0); PO2 ABG 91.7 mmHg (80.0-100.0); PO2 FiO2 Ratio Arterial Blood 2.87 %
[2025-04-20 05:37] LABS: Modified Allen's Test Pass; Site Drawn LEFT RADIAL
[2025-04-20 05:39] LABS: Non-Invasive Expiratory Pressure 5 CMH2O; Non-Invasive Inspiratory Pressure 10 CMH2O; Non-Invasive Vent Rate 12 /MIN
[2025-04-20] MEDS: UMECLIDINIUM/VILANTEROL 62.5-25 MCG ELLIPTA 1 PUFF INHALATION (07:11)
[2025-04-20] MEDS: IPRATROPIUM 0.5 MG/ALBUTEROL SULFATE 2.5 MG AMPUL.NEB 3 ML INHALATION ×2 (07:11→13:33)
[2025-04-20] MEDS: guaiFENesin 12 HR 600 MG TABCR 1200 MG PO ×2 (09:00→20:33)
[2025-04-20] MEDS: ATORVASTATIN 10 MG TABLET BY MOUTH (09:00)
[2025-04-20] MEDS: METOPROLOL TARTRATE 12.5 MG TABLET PO ×2 (09:46→20:33)
[2025-04-20 10:40] LABS: Influenza A QL RT-PCR Negative (Negative); Influenza B QL RT-PCR Negative (Negative); RSV RNA, RT-PCR Negative (Negative); SARS-CoV-2 RNA PCR Negative (Negative)
[2025-04-20 11:14] LABS: MRSA (PCR) NOT DETECTED (NOT DETECTE)
[2025-04-20] MEDS: AZITHROMYCIN 500 MG/NS 250 ML 500 MG/250 ML BAG 250 MG IVPB (14:44)
[2025-04-20] MEDS: RIVAROXABAN 20 MG TABLET PO (16:44)
--- NOTE | 2025-04-20 17:50 | P.PNIM_ITS ---
Progress Note: A&P Assessment and Plan (1) Acute respiratory failure: Code(s): J96.00 - Acute respiratory failure, unspecified whether with hypoxia or hypercapnia Status: Acute Assessment and Plan: Patient presents with SOB. CXR was abnormal and CTA chest showing no PE but moderate emphysema and Rt lower lobe PNA. ABG 7.53//55 on 1L. Treated with O2 then BiPAP. Improvement in symptoms. Duonebs started. Heart rate controlled. ABG today 7.43/ on bipap Weaned to room air now Follow (2) Pneumonia: Qualifiers: Laterality: right Lung location: lower lobe of lung Pneumonia type: due to unspecified organism Qualified Code(s): J18.9 - Pneumonia, unspecified organism Code(s): J18.9 - Pneumonia, unspecified organism Status: Acute Assessment and Plan: CTA chest showing RLL PNA. Cough productive of brown sputum. Started on Rocephin and Azithro. BCx NGTD WBC higher but on steroids MRSA nasal swab negative. Urine Ag ordered. Continue IV abx (3) Sepsis: Qualifiers: Sepsis acute organ dysfunction status: unspecified Sepsis type: sepsis due to unspecified organism Qualified Code(s): A41.9 - Sepsis, unspecified organism Code(s): A41.9 - Sepsis, unspecified organism Status: Acute Assessment and Plan: Present on admission with leukocytosis, tachycardia and fever secondary to PNA Treated with 30mL/kg - about 2.2L BCx NGTD Symptoms much better (4) Atrial fibrillation with rapid ventricular response: Code(s): I48.91 - Unspecified atrial fibrillation Status: Acute Assessment and Plan: Patient is compliant with medications at home. Suspect AFib/RVR secondary to infection and fever Diltiazem drip started and rate better. Wean off Dilt drip and transtion to metoprolol Continue Telemetry monitoring (5) Renal mass: Code(s): N28.89 - Other specified disorders of kidney and ureter Status: Acute Assessment and Plan: CT abd/pelvis showing a left renal pelvis 1.3cm filling defect with calcifications and soft tissue attenuation. Direct visualization is recommended Urology consulted pending recommendations (6) COPD (chronic obstructive pulmonary disease): Qualifiers: COPD type: unspecified COPD Qualified Code(s): J44.9 - Chronic obstructive pulmonary disease, unspecified Code(s): J44.9 - Chronic obstructive pulmonary disease, unspecified Status: Acute Assessment and Plan: Patient with acute resp failure. COntinue inhalers and duonebs. Change to Xopenex Steroids started but not wheezing so will stop after 5 days (7) CKD (chronic kidney disease): Code(s): N18.9 - Chronic kidney disease, unspecified Status: Acute Assessment and Plan: Creatinine was slightly elevated above baseline but better after IVF Follow (8) HLD (hyperlipidemia): Qualifiers: Hyperlipidemia type: unspecified Qualified Code(s): E78.5 - Hyperlipi demia, unspecified Code(s): E78.5 - Hyperlipidemia, unspecified Status: Acute Assessment and Plan: LFTs okay. Continue home Lipitor Plan DVT Prophylaxis - Xarelto Code status - Full Subjective Date/time seen: 04/20/25 17:50 Interval history: 79yo male with COPD, HTN, HLD and AFib who presents to the hospital with fever, shortness of breath and tachycardia. Patient feels a lot better. Slept some. Cough productive of brown sputum. No CP or SOB. Not on home O2. Exam Narrative: Tm 101 98.1 119/67 95 16 99% ra Gen - NARD Chest - R>L inspiratory crackles. nml RR CV - irregular. tele showing AFib with controlled rate. Abd - Soft, NT/ND, Positive BS Ext - No pedal edema Neuro - Alert and appropriate Psych - Nml mood and affect Skin - Warm and dry Objective Data Vital Signs Vital Signs: Vital Signs - 24 hr 04/19/25 17:57 04/19/25 18:00 04/19/25 18:00 Temperature Pulse Rate 122 H 111 H 113 H Respiratory Rate 34 H Blood Pressure 113/71 Pulse Oximetry 100 Oxygen Delivery Nasal Cannula Oxygen Flow Rate 1 Fraction of Inspired Oxygen 04/19/25 20:00 04/19/25 20:00 04/19/25 20:00 Temperature 100.1 F H Pulse Rate 105 H 105 H Respiratory Rate 23 H Blood Pressure 112/66 Pulse Oximetry 100 98 Oxygen Delivery Nasal Cannula Oxygen Flow Rate 1 Fraction of Inspired Oxygen 04/19/25 20:00 04/19/25 21:44 04/19/25 22:00 Temperature Pulse Rate 105 H 108 H Respiratory Rate 35 H Blood Pressure 112/66 97/63 L Pulse Oximetry 100 100 Oxygen Delivery Nasal Cannula Oxygen Flow Rate 3 Fraction of Inspired Oxygen 04/19/25 22:00 04/19/25 22:00 04/19/25 23:05 Temperature Pulse Rate 108 H 108 H 101 H Respiratory Rate 24 H Blood Pressure 97/63 L Pulse Oximetry 100 Oxygen Delivery BiPAP Oxygen Flow Rate Fraction of Inspired Oxygen 04/19/25 23:22 04/20/25 00:00 04/20/25 00:00 Temperature 101 F H Pulse Rate 95 Respiratory Rate Blood Pressure 96/62 L Pulse Oximetry 100 Oxygen Delivery BiPAP Oxygen Flow Rate Fraction of Inspired Oxygen 32 04/20/25 00:00 04/20/25 00:00 04/20/25 00:22 Temperature 101 F H 97.5 F L Pulse Rate 94 94 Respiratory Rate 26 H Blood Pressure 96/62 L Pulse Oximetry 100 Oxygen Delivery Oxygen Flow Rate Fraction of Inspired Oxygen 04/20/25 00:41 04/20/25 00:42 04/20/25 02:00 Temperature Pulse Rate 84 91 83 Respiratory Rate Blood Pressure 96/65 L 96/65 L Pulse Oximetry Oxygen Delivery Oxygen Flow Rate Fraction of Inspired Oxygen 04/20/25 02:00 04/20/25 02:23 04/20/25 02:26 Temperature Pulse Rate 83 85 85 Respiratory Rate 21 H 24 H 24 H Blood Pressure 95/63 L Pulse Oximetry 100 100 Oxygen Delivery BiPAP Oxygen Flow Rate Fraction of Inspired Oxygen 04/20/25 02:32 04/20/25 04:00 04/20/25 04:00 Temperature Pulse Rate 88 88 Respiratory Rate 24 H Blood Pressure 92/55 L Pulse Oximetry 100 Oxygen Delivery BiPAP Oxygen Flow Rate Fraction of Inspired Oxygen 32 04/20/25 04:00 04/20/25 04:00 04/20/25 04:20 Temperature 97 F L Pulse Rate 88 88 85 Respiratory Rate 22 H Blood Pressure 92/55 L 95/66 L Pulse Oximetry 100 Oxygen Delivery Oxygen Flow Rate Fraction of Inspired Oxygen 04/20/25 05:48 04/20/25 06:00 04/20/25 06:00 Temperature Pulse Rate 83 79 79 Respiratory Rate 16 Blood Pressure 95/70 L Pulse Oximetry 100 Oxygen Delivery BiPAP Oxygen Flow Rate Fraction of Inspired Oxygen 04/20/25 06:00 04/20/25 07:14 04/20/25 07:15 Temperature Pulse Rate 79 80 80 Respiratory Rate 19 19 19 Blood Pressure 95/70 L Pulse Oximetry 100 100 Oxygen Delivery BiPAP Oxygen Flow Rate Fraction of Inspired Oxygen 04/20/25 07:26 04/20/25 08:00 04/20/25 08:00 Temperature Pulse Rate 88 108 H Respiratory Rate 27 H Blood Pressure Pulse Oximetry 100 Oxygen Delivery BiPAP Oxygen Flow Rate Fraction of Inspired Oxygen 32 04/20/25 08:00 04/20/25 09:46 04/20/25 09:55 Temperature Pulse Rate 79 95 Respiratory Rate 19 Blood Pressure 103/67 Pulse Oximetry 100 100 Oxygen Delivery Oxygen Flow Rate Fraction of Inspired Oxygen 04/20/25 09:55 04/20/25 10:00 04/20/25 10:00 Temperature Pulse Rate 94 82 Respiratory Rate Blood Pressure Pulse Oximetry 100 Oxygen Delivery Room Air Oxygen Flow Rate Fraction of Inspired Oxygen 04/20/25 12:00 04/20/25 12:00 04/20/25 12:00 Temperature 97.7 F Pulse Rate 86 86 Respiratory Rate 21 H Blood Pressure 114/70 Pulse Oximetry 99 100 Oxygen Delivery Nasal Cannula Oxygen Flow Rate 2 Fraction of Inspired Oxygen 04/20/25 13:37 04/20/25 13:45 04/20/25 14:00 Temperature Pulse Rate 86 96 90 Respiratory Rate 20 15 Blood Pressure Pulse Oximetry Oxygen Delivery Oxygen Flow Rate Fraction of Inspired Oxygen 04/20/25 16:00 04/20/25 16:00 04/20/25 16:00 Temperature 98.1 F Pulse Rate 106 H 95 Respiratory Rate 16 Blood Pressure 119/67 Pulse Oximetry 95 99 Oxygen Delivery Room Air Oxygen Flow Rate Fraction of Inspired Oxygen Intake/Output Intake/Output: Intake & Output 04/17/25 04/18/25 04/19/25 04/20/25 23:59 23:59 23:59 23:59 Intake Total 3049.6 875.0 Output Total 350 Balance 3049.6 525.0 Meds/Results Medications: Active Medications Generic Name Dose Route Start Last Admin Trade Name Freq PRN Reason Stop Dose Admin Acetaminophen 650 mg 04/19/25 14:44 04/19/25 23:22 Acetaminophen 325 Mg Tablet PO 650 mg Q4H PRN Administration Mild Pain (1-3) or Fever Albuterol/Ipratropium 3 ml 04/20/25 02:00 04/20/25 13:33 Ipratropium 0.5 Mg/Albuterol Sulfate 2.5 Mg Ampul.Neb 3 Ml INHALATION 3 ml Q6HRT RONNIE Administration Atorvastatin Calcium 10 mg 04/20/25 09:00 04/20/25 09:00 Atorvastatin 10 Mg Tablet BY MOUTH 10 mg DAILY RONNIE Administration Dextrose 12.5 gm 04/19/25 14:44 Dextrose 50% 25 Gm/50 Ml Syringe IV PUSH PRN PRN Hypoglycemia Protocol Glucagon 1 mg 04/19/25 14:44 Glucagon For Inj 1 Mg Vial IM PRN PRN Hypoglycemia Protocol Glucose 15 gm 04/19/25 14:44 Glucose Oral Gel 15 Gm Of Glucse In 37.5 Gm Tube PO PRN PRN Hypoglycemia Protocol Guaifenesin 1,200 mg 04/19/25 21:00 04/20/25 09:00 Guaifenesin 12 Hr 600 Mg Tabcr PO 1,200 mg Q12HR RONNIE Administration Ceftriaxone Sodium 1 gm in 50 mls @ 100 mls/hr 04/20/25 14:00 04/20/25 13:19 Rocephin 1 Gm/Ns 50 Ml IVPB 100 mls/hr Q24H RONNIE Administration Azithromycin 500 mg in 250 mls @ 250 mls/hr 04/20/25 15:00 04/20/25 14:44 Zithromax IVPB 250 mls/hr Q24H RONNIE Administration Dextrose 1,000 mls @ 100 mls/hr 04/19/25 14:44 Dextrose 5% 1,000 Ml IVPB PRN PRN Hypoglycemia Protocol Diltiazem HCl 100 mg in 100 mls @ 0 mls/hr 04/20/25 00:25 04/20/25 10:00 Cardizem 100 Mg/100 Ml IV CONT 0 mg/hr .Q0M RONNIE 0 mls/hr Infusion 0 MG/HR Metoprolol Tartrate 12.5 mg 04/19/25 21:00 04/20/25 09:46 Metoprolol Tartrate 12.5 Mg Tablet PO 12.5 mg Q12HR RONNIE Administration Ondansetron HCl 4 mg 04/19/25 14:44 Ondansetron Inj 4 Mg/2 Ml Vial IV PUSH Q4H PRN Nausea Prednisone 40 mg 04/20/25 08:00 04/20/25 09:00 Prednisone 20 Mg Tablet PO 40 mg DAILY@0800 RONNIE Administration Rivaroxaban 20 mg 04/20/25 17:00 04/20/25 16:44 Rivaroxaban 20 Mg Tablet PO 20 mg DAILY@1700 RONNIE Administration Senna 8.6 mg 04/19/25 21:55 04/19/25 22:37 Sennosides 8.6 Mg Tablet PO 8.6 mg HS RONNIE Administration Umeclidinium/Vilanterol 1 puff 04/20/25 09:00 04/20/25 07:11 Umeclidinium/Vilanterol 62.5-25 Mcg Ellipta INHALATION 1 puff DAILY RONNIE Administration Radiology Results: ITS Impressions Chest X-Ray 04/19/25 10:48 IMPRESSION: Airspace opacity without air bronchograms in the superior segment of the right lower lobe, for which noncontrast enhanced CT examination of the chest is recommended for further evaluation. Chest CT 04/19/25 12:23 IMPRESSION: 1. Moderate emphysema with right lower lobe pneumonia. 2. 3 small calcifications and increased density in the left renal pelvis which could represent nephrolithiasis and associated clot but also raises concern for urothelial carcinoma. Correlate with urinalysis and would recommend CT angiogram for further evaluation. Abdomen/Pelvis CT 04/19/25 14:13 IMPRESSION: Findings within the left renal pelvis (as detailed above) for which direct visualization is recommended. Remainder of the examination is otherwise unremarkable, as detailed above. Labs Labs: Laboratory Results - last 24 hr 04/19/25 04/19/25 04/20/25 21:30 22:47 03:58 WBC 17.2 H RBC 3.93 L Hgb 13.0 L Hct 39.7 L MCV 101.0 H MCH 33.1 MCHC 32.7 RDW 14.8 H Plt Count 221 MPV 9.1 Immature Gran % (Auto) 0.6 H Neut % (Auto) 89.2 H Lymph % (Auto) 7.9 L [place] % (Auto) 2.1 L Eos % (Auto) 0.0 Baso % (Auto) 0.2 Lymph # (Auto) 1.36 [place] # (Auto) 0.4 Eos # (Auto) 0.0 Baso # (Auto) 0.0 Abs Immat Gran (auto) 0.10 H Absolute Neuts (auto) 15.4 H Absolute Nucleated RBC 0.000 Nucleated RBC % 0.0 Puncture Site Left radial Left radial ABG pH 7.532 H* 7.512 H* ABG pCO2 24.7 L 24.1 L ABG pO2 55.1 L 67.1 L ABG PO2/FiO2 Ratio 2.30 2.10 ABG HCO3 20.3 L 18.9 L ABG O2 Saturation 92.4 L 95.3 ABG O2 Content 17.6 18.7 ABG Base Excess -0.7 -2.2 A-a Gradient 86.6 132.9 Oxyhemoglobin 90.1 93.1 Total Hemoglobin 13.9 14.3 O2 Delivery Device Nasal cannula Nasal cannula O2 Liters/Min 1.0 3.0 Vent Rate FiO2 24 32 Expiratory Pressure Inspiratory Pressure Sodium 135 L Potassium 4.1 Chloride 108 H Carbon Dioxide 16 L Anion Gap 11 BUN 31 H Creatinine 1.25 Estim Creat Clear Calc 46 Estimated GFR 56 L Glucose 135 H Calcium 8.5 Nasal MRSA (PCR) Influenza A (RT-PCR) Influenza B (RT-PCR) RSV (RT-PCR) SARS-CoV-2 RNA (RT-PCR) 04/20/25 04/20/25 05:28 09:51 WBC RBC Hgb Hct MCV MCH MCHC RDW Plt Count MPV Immature Gran % (Auto) Neut % (Auto) Lymph % (Auto) [place] % (Auto) Eos % (Auto) Baso % (Auto) Lymph # (Auto) [place] # (Auto) Eos # (Auto) Baso # (Auto) Abs Immat Gran (auto) Absolute Neuts (auto) Absolute Nucleated RBC Nucleated RBC % Puncture Site Left radial ABG pH 7.436 ABG pCO2 30.0 L ABG pO2 91.7 ABG PO2/FiO2 Ratio 2.87 ABG HCO3 19.7 L ABG O2 Saturation 97.3 ABG O2 Content 18.8 ABG Base Excess -3.3 A-a Gradient 101.4 Oxyhemoglobin 96.3 Total Hemoglobin 13.8 O2 Delivery Device Non-invasive vent O2 Liters/Min Not Reportable Vent Rate 12 FiO2 32 Expiratory Pressure 5 Inspiratory Pressure 10 Sodium Potassium Chloride Carbon Dioxide Anion Gap BUN Creatinine Estim Creat Clear Calc Estimated GFR Glucose Calcium Nasal MRSA (PCR) Not detected Influenza A (RT-PCR) Negative Influenza B (RT-PCR) Negative RSV (RT-PCR) Negative SARS-CoV-2 RNA (RT-PCR) Negative
[2025-04-20] MEDS: SENNOSIDES 8.6 MG TABLET PO (20:34)
[2025-04-21] VITALS (22 sets, daily range): BP systolic 90–116; BP diastolic 54–84; PULSE 91–135; RESP 14–25; TEMP 36.3–36.8; O2SAT 92–98
[2025-04-21 04:34] LABS: Hematocrit 37.9 % (42.0-52.0); Hemoglobin 12.6 g/dL (14.0-18.0); Immature Granulocyte Percent A 0.8 % (0-0.5); Lymphocytes Absolute Auto 1.73 K/mm3 (0.9-3.2); Mean Corpuscular HGB Conc 33.2 g/dl (32-36); Mean Corpuscular Hemoglobin 32.9 pg (26-34); Mean Corpuscular Volume 99.0 fl (80-100); Nucleated Red Blood Cells Absolute Auto 0.000 K/mm3 (0.0-0.012); Nucleated Red Blood Cells Perc 0.0 % (0.0-0.2); Platelet Count Result 254 k/mm3 (150-375); Red Blood Count 3.83 M/mm3 (4.6-6.20); White Blood Count 20.8 K/mm3 (4.5-10.0)
[2025-04-21 04:51] LABS: Anion Gap 10 mmol/L (4-12); Blood Urea Nitrogen 35 mg/dL (9-20); Calcium 9.0 mg/dL (8.4-10.2); Carbon Dioxide 18 mmol/L (22-30); Chloride 107 mmol/L (98-107); Estimated CRCL calculation 55 ml/min; Estimated Glomerular Filt Rate > 60; Glucose 145 mg/dL (65-110); Potassium 3.8 mmol/L (3.4-5.0); Sodium 135 mmol/L (137-145)
[2025-04-21] MEDS: AZITHROMYCIN 500 MG TABLET PO (08:00)
[2025-04-21] MEDS: ATORVASTATIN 10 MG TABLET BY MOUTH (08:00)
[2025-04-21] MEDS: guaiFENesin 12 HR 600 MG TABCR 1200 MG PO ×2 (08:00→20:47)
[2025-04-21] MEDS: METOPROLOL TARTRATE 12.5 MG TABLET PO ×3 (08:00→21:11)
[2025-04-21] MEDS: UMECLIDINIUM/VILANTEROL 62.5-25 MCG ELLIPTA 1 PUFF INHALATION (08:54)
--- NOTE | 2025-04-21 14:32 | P.PNIM_ITS ---
Progress Note: A&P Assessment and Plan (1) Acute respiratory failure: Code(s): J96.00 - Acute respiratory failure, unspecified whether with hypoxia or hypercapnia Status: Acute Assessment and Plan: Patient presents with SOB. CXR was abnormal and CTA chest showing no PE but moderate emphysema and Rt lower lobe PNA. ABG 7.53/25/55 on 1L. Treated with O2 then BiPAP. Improvement in symptoms. Duonebs started. Heart rate controlled. ABG 7.43/30/ on bipap Weaned to room air now Follow (2) Pneumonia: Qualifiers: Laterality: right Lung location: lower lobe of lung Pneumonia type: due to unspecified organism Qualified Code(s): J18.9 - Pneumonia, unspecified organism Code(s): J18.9 - Pneumonia, unspecified organism Status: Acute Assessment and Plan: CTA chest showing RLL PNA. Cough productive of brown sputum. Started on Rocephin and Azithro. BCx NGTD Sputum Cx pending WBC higher but on steroids MRSA nasal swab negative. Urine Ag ordered. Continue IV abx (3) Sepsis: Qualifiers: Sepsis acute organ dysfunction status: unspecified Sepsis type: sepsis due to unspecified organism Qualified Code(s): A41.9 - Sepsis, unspecified o rganism Code(s): A41.9 - Sepsis, unspecified organism Status: Acute Assessment and Plan: Present on admission with leukocytosis, tachycardia and fever secondary to PNA Treated with 30mL/kg - about 2.2L BCx NGTD Sputum Cx pending Symptoms much better (4) Atrial fibrillation with rapid ventricular response: Code(s): I48.91 - Unspecified atrial fibrillation Status: Acute Assessment and Plan: Patient is compliant with medications at home. Suspect AFib/RVR secondary to infection and fever Diltiazem drip started and rate better. Wean off Dilt drip and transtioned back to metoprolol HR still elevated at times. BP soft. Will advance metoprolol as tolerated. Stop Xopenex. Continue Telemetry monitoring (5) Renal mass: Code(s): N28.89 - Other specified disorders of kidney and ureter Status: Acute Assessment and Plan: CT abd/pelvis showing a left renal pelvis 1.3cm filling defect with calcifications and soft tissue attenuation. Direct visualization is recommended Urology consulted pending recommendations (6) COPD (chronic obstructive pulmonary disease): Qualifiers: COPD type: unspecified COPD Qualified Code(s): J44.9 - Chronic obstructive pulmonary disease, unspecified Code(s): J44.9 - Chronic obstructive pulmonary disease, unspecified Status: Acute Assessment and Plan: Patient with acute resp failure. Continue inhalers. Steroids started but not wheezing so will stop after 5 days Bronchodilators changed to prn (7) CKD (chronic kidney disease): Code(s): N18.9 - Chronic kidney disease, unspecified Status: Acute Assessment and Plan: Creatinine was slightly elevated above baseline but better after IVF Follow (8) HLD (hyperlipidemia): Qualifiers: Hyperlipidemia type: unspecified Qualified Code(s): E78.5 - Hyperlipidemia, unspecified Code(s): E78.5 - Hyperlipidemia, unspecified Status: Acute Assessment and Plan: LFTs okay. Continue home Lipitor Plan DVT Prophylaxis - Xarelto Code status - Full Disp - PT/OT ordered Subjective Date/time seen: 04/21/25 14:32 Interval history: 79yo male with COPD, HTN, HLD and AFib who presents to the hospital with fever, shortness of breath and tachycardia. Exam Narrative: AF 98.0 113/82 100 24 98% ra Gen - NARD Chest - R>L inspiratory crackles. nml RR CV - irregular. tele showing AFib with controlled rate. Abd - Soft, NT/ND, Positive BS Ext - No pedal edema Neuro - Alert and appropriate Psych - Nml mood and affect Skin - Warm and dry Objective Data Vital Signs Vital Signs: Vital Signs - 24 hr 04/20/25 16:00 04/20/25 16:00 04/20/25 16:00 Temperature 98.1 F Pulse Rate 106 H 95 Respiratory Rate 16 Blood Pressure 119/67 Pulse Oximetry 95 99 Oxygen Delivery Room Air 04/20/25 18:00 04/20/25 19:46 04/20/25 19:47 Temperature 97.7 F Pulse Rate 83 95 Respiratory Rate 20 20 Blood Pressure 133/81 Pulse Oximetry 97 97 Oxygen Delivery Room Air 04/20/25 20:00 04/20/25 20:00 04/20/25 20:33 Temperature Pulse Rate 107 H 104 H 102 H Respiratory Rate Blood Pressure 120/77 Pulse Oximetry 94 Oxygen Delivery 04/20/25 20:39 04/20/25 20:45 04/20/25 20:52 Temperature Pulse Rate 111 H 111 H Respiratory Rate 16 16 Blood Pressure Pulse Oximetry 95 Oxygen Delivery Room Air 04/20/25 22:00 04/20/25 23:30 04/20/25 23:30 Temperature 97.7 F Pulse Rate 100 97 97 Respiratory Rate 23 H 23 H Blood Pressure 108/75 Pulse Oximetry 92 92 Oxygen Delivery Room Air 04/21/25 00:00 04/21/25 02:00 04/21/25 03:03 Temperature Pulse Rate 93 94 113 H Respiratory Rate 16 Blood Pressure Pulse Oximetry Oxygen Delivery 04/21/25 03:13 04/21/25 05:00 04/21/25 05:00 Temperature Pulse Rate 113 H 109 H Respiratory Rate 16 Blood Pressure Pulse Oximetry 93 Oxygen Delivery Room Air 04/21/25 05:00 04/21/25 06:00 04/21/25 08:00 Temperature 97.3 F L Pulse Rate 119 H 103 H 135 H Respiratory Rate 20 Blood Pressure 90/76 L Pulse Oximetry 92 Oxygen Delivery 04/21/25 08:00 04/21/25 08:00 04/21/25 08:00 Temperature 98.2 F Pulse Rate 123 H Respiratory Rate 15 Blood Pressure 114/84 Pulse Oximetry 94 94 94 Oxygen Delivery Room Air 04/21/25 08:00 04/21/25 08:55 04/21/25 09:04 Temperature Pulse Rate 111 H 109 H 108 H Respiratory Rate 14 17 Blood Pressure Pulse Oximetry Oxygen Delivery 04/21/25 10:00 04/21/25 12:00 04/21/25 12:00 Temperature Pulse Rate 104 H 116 H Respiratory Rate Blood Pressure Pulse Oximetry 98 Oxygen Delivery Room Air 04/21/25 12:00 04/21/25 14:00 04/21/25 14:00 Temperature 98.0 F Pulse Rate 133 H 103 H 101 H Respiratory Rate 18 25 H Blood Pressure 113/82 Pulse Oximetry 98 Oxygen Delivery 04/21/25 14:11 Temperature Pulse Rate 100 Respiratory Rate 24 H Blood Pressure Pulse Oximetry Oxygen Delivery Intake/Output Intake/Output: Intake & Output 04/18/25 04/19/25 04/20/25 04/21/25 23:59 23:59 23:59 23:59 Intake Total 3049.6 1165.0 478 Output Total 1500 550 Balance 3049.6 -335.0 -72 Meds/Results Medications: Active Medications Generic Name Dose Route Start Last Admin Trade Name Freq PRN Reason Stop Dose Admin Acetaminophen 650 mg 04/19/25 14:44 04/19/25 23:22 Acetaminophen 325 Mg Tablet PO 650 mg Q4H PRN Administration Mild Pain (1-3) or Fever Albuterol/Ipratropium 3 ml 04/20/25 18:13 Ipratropium 0.5 Mg/Albuterol Sulfate 2.5 Mg Ampul.Neb 3 Ml INHALATION Q6HRT PRN Shortness Of Breath Or Wheezing Atorvastatin Calcium 10 mg 04/20/25 09:00 04/21/25 08:00 Atorvastatin 10 Mg Tablet BY MOUTH 10 mg DAILY RONNIE Administration Azithromycin 500 mg 04/21/25 09:00 04/21/25 08:00 Azithromycin 500 Mg Tablet PO 04/23/25 09:01 500 mg DAILY RONNIE Administration Dextrose 12.5 gm 04/19/25 14:44 Dextrose 50% 25 Gm/50 Ml Syringe IV PUSH PRN PRN Hypoglycemia Protocol Glucagon 1 mg 04/19/25 14:44 Glucagon For Inj 1 Mg Vial IM PRN PRN Hypoglycemia Protocol Glucose 15 gm 04/19/25 14:44 Glucose Oral Gel 15 Gm Of Glucse In 37.5 Gm Tube PO PRN PRN Hypoglycemia Protocol Guaifenesin 1,200 mg 04/19/25 21:00 04/21/25 08:00 Guaifenesin 12 Hr 600 Mg Tabcr PO 1,200 mg Q12HR RONNIE Administration Ceftriaxone Sodium 1 gm in 50 mls @ 100 mls/hr 04/20/25 14:00 04/21/25 13:57 Rocephin 1 Gm/Ns 50 Ml IVPB 100 mls/hr Q24H RONNIE Administration Dextrose 1,000 mls @ 100 mls/hr 04/19/25 14:44 Dextrose 5% 1,000 Ml IVPB PRN PRN Hypoglycemia Protocol Levalbuterol HCl 1.25 mg 04/20/25 20:00 04/21/25 13:59 Levalbuterol Neb 1.25 Mg/3 Ml INHALATION 1.25 mg Q6HRT RONNIE Administration Metoprolol Tartrate 12.5 mg 04/19/25 21:00 04/21/25 08:00 Metoprolol Tartrate 12.5 Mg Tablet PO 12.5 mg Q12HR RONNIE Administration Prednisone 40 mg 04/20/25 08:00 04/21/25 08:00 Prednisone 20 Mg Tablet PO 04/24/25 08:01 40 mg DAILY@0800 RONNIE Administration Rivaroxaban 20 mg 04/20/25 17:00 04/20/25 16:44 Rivaroxaban 20 Mg Tablet PO 20 mg DAILY@1700 RONNIE Administration Senna 8.6 mg 04/19/25 21:55 04/20/25 20:34 Sennosides 8.6 Mg Tablet PO 8.6 mg HS RONNIE Administration Umeclidinium/Vilanterol 1 puff 04/20/25 09:00 04/21/25 08:54 Umeclidinium/Vilanterol 62.5-25 Mcg Ellipta INHALATION 1 puff DAILY RONNIE Administration Radiology Results: ITS Impressions Chest X-Ray 04/19/25 10:48 IMPRESSION: Airspace opacity without air bronchograms in the superior segment of the right l ower lobe, for which noncontrast enhanced CT examination of the chest is recommended for further evaluation. Chest CT 04/19/25 12:23 IMPRESSION: 1. Moderate emphysema with right lower lobe pneumonia. 2. 3 small calcifications and increased density in the left renal pelvis which could represent nephrolithiasis and associated clot but also raises concern for urothelial carcinoma. Correlate with urinalysis and would recommend CT angiogram for further evaluation. Abdomen/Pelvis CT 04/19/25 14:13 IMPRESSION: Findings within the left renal pelvis (as detailed above) for which direct visualization is recommended. Remainder of the examination is otherwise unremarkable, as detailed above. Labs Labs: Laboratory Results - last 24 hr 04/21/25 03:46 WBC 20.8 H RBC 3.83 L Hgb 12.6 L Hct 37.9 L MCV 99.0 MCH 32.9 MCHC 33.2 RDW 14.8 H Plt Count 254 MPV 9.3 Immature Gran % (Auto) 0.8 H Neut % (Auto) 86.5 H Lymph % (Auto) 8.3 L [place] % (Auto) 4.0 Eos % (Auto) 0.3 Baso % (Auto) 0.1 L Lymph # (Auto) 1.73 [place] # (Auto) 0.8 H Eos # (Auto) 0.1 Baso # (Auto) 0.0 Abs Immat Gran (auto) 0.17 H Absolute Neuts (auto) 18.0 H Absolute Nucleated RBC 0.000 Nucleated RBC % 0.0 Sodium 135 L Potassium 3.8 Chloride 107 Carbon Dioxide 18 L Anion Gap 10 BUN 35 H Creatinine 1.03 Estim Creat Clear Calc 55 Estimated GFR > 60 Glucose 145 H Calcium 9.0
--- NOTE | 2025-04-21 14:47 | PC.NURSE ---
This patient, Zeke Wilkinson, was transferred to [facility] on 04/21/25 at 1430. Personal belongings sent with patient. Report given to Devan. Appropriate documentation sent with patient.
[2025-04-21] MEDS: RIVAROXABAN 20 MG TABLET PO (16:50)
[2025-04-21] MEDS: SENNOSIDES 8.6 MG TABLET PO (20:48)
[2025-04-22] VITALS (14 sets, daily range): BP systolic 91–124; BP diastolic 55–82; PULSE 85–115; RESP 18; TEMP 36.8–37; O2SAT 93–98
[2025-04-22 04:47] LABS: Hematocrit 37.0 % (42.0-52.0); Hemoglobin 12.3 g/dL (14.0-18.0); Immature Granulocyte Percent A 0.8 % (0-0.5); Lymphocytes Absolute Auto 2.11 K/mm3 (0.9-3.2); Mean Corpuscular HGB Conc 33.2 g/dl (32-36); Mean Corpuscular Hemoglobin 33.4 pg (26-34); Mean Corpuscular Volume 100.5 fl (80-100); Nucleated Red Blood Cells Absolute Auto 0.020 K/mm3 (0.0-0.012); Nucleated Red Blood Cells Perc 0.1 % (0.0-0.2); Platelet Count Result 270 k/mm3 (150-375); Red Blood Count 3.68 M/mm3 (4.6-6.20); White Blood Count 19.7 K/mm3 (4.5-10.0)
[2025-04-22 05:01] LABS: Anion Gap 5 mmol/L (4-12); Blood Urea Nitrogen 35 mg/dL (9-20); Calcium 9.2 mg/dL (8.4-10.2); Carbon Dioxide 24 mmol/L (22-30); Chloride 109 mmol/L (98-107); Estimated CRCL calculation 54 ml/min; Estimated Glomerular Filt Rate > 60; Glucose 112 mg/dL (65-110); Potassium 4.7 mmol/L (3.4-5.0); Sodium 138 mmol/L (137-145)
[2025-04-22] MEDS: METOPROLOL TARTRATE 12.5 MG TABLET PO (06:11)
[2025-04-22] MEDS: AZITHROMYCIN 500 MG TABLET PO (08:12)
[2025-04-22] MEDS: guaiFENesin 12 HR 600 MG TABCR 1200 MG PO (08:12)
[2025-04-22] MEDS: ATORVASTATIN 10 MG TABLET BY MOUTH (08:12)
[2025-04-22] MEDS: UMECLIDINIUM/VILANTEROL 62.5-25 MCG ELLIPTA 1 PUFF INHALATION (08:33)
[2025-04-22] MEDS: METOPROLOL SUCCINATE EXT REL 12.5 MG, METOPROLOL SUCCINATE EXT REL 25 MG 37.5 MG PO (12:59)
--- NOTE | 2025-04-22 15:51 | P.CONUR_ITS ---
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 He will need further workup with ureteroscopy and possible biopsy versus laser ablation when medically able to have a general anesthesia. Patient was informed of the findings and the potential etiologies including but not limited to (upper tract malignancy, stone disease, benign polyps, clot, etc) which requires more investigation to establish a definitve diagnosis. Patient understands the risks if he fails to follow-up including risk of growth and spread if indeed it is an upper tract cancer. Patient voiced understanding is agreeable for follow-up in the near future, when pneumonia subsides. He was advised on smoking cessation as smoking is a primary risk factor for upper tract and urothelial malignancy Urology Consult Note HPI Date Seen: 04/22/25 Requesting Physician: Shannan Maynard MD Primary Care Provider: Zane Rice DO Consult Narrative Narrative: Zeke Wilkinson is a 79-year-old gentleman admitted with pneumonia who was a found to have an incidental filling defect in the left renal pelvis 13 mm in size concerning for an upper tract urothelial carcinoma. Of note he is a heavy smoker 1 pack/day for over 40 years. Denies any chest pain or troubles breathing at this time. He denies any gross hematuria or dysuria he notes a remote history of kidney stones disease for which he passed 1 spontaneously about 15 years ago. He denies any significant irritative or obstructive urinary symptoms no family history of malignancies. Review of Systems 2 Constitutional: Constitutional: Reports as per HPI and Reports no additional constitutional complaints Eyes: Eyes: Reports as per HPI and Reports no additional eye complaints Cardiovascular: Cardiovascular: Reports as per HPI Respiratory: Respiratory: Reports as per HPI Gastrointestinal: Gastrointestinal: Reports as per HPI Genitourinary: Genitourinary: Reports no additional male genitourinary complaints Musculoskeletal: Musculoskeletal: Reports no additional musculoskeletal complaints Integumentary/Breasts: Skin/Breast: Reports system reviewed and no additional complaints, except as docu Psychiatric: Psychiatric: Reports no additional psychiatric complaints PMFSH Past Medical History Medical History Skin cancer Leukocytosis Anemia Hyperglycemia HLD (hyperlipidemia) COPD (chronic obstructive pulmonary disease) HTN (hypertension) A-fib Surgical History Surgical History No history of previous surgery Family History Family History Father Family history of coronary artery disease Mother Acute myocardial infarction Family history of ovarian cancer Sibling Family history of ovarian cancer Heart disease Other Diabetes mellitus Social History Social History Social History: caffeine-coffee Smoking packs per day: 0.5 Smoking cigarettes per day: 10.0 Years smoked: 61 Smoking pack-years: 30.50 Smoking status: Current some day smoker Tobacco type: cigarettes Additional smoking assessment comments: occasional smoker Alcohol intake: never Substance use: never Substance use type: does not use Do You Feel Safe in your Home?: Yes Lack of Transportation: No Lack of Food: Never True Current Housing: I Have Housing Concerned About Future Housing: No Difficulty Paying Gas/Electric Bills: No Difficulty Paying for Meds: No Currently Unemployed: No Education: Associate Degree Difficulty w/ Childcare or Family Care: No Spiritual care concerns: No Meds Home Medications and Allergies Home Medications ?Medication ?Instructions ?Recorded ?Confirmed ?Type coenzyme Q10-red yeast rice 60 1 cap PO DAILY 10/19/19 04/19/25 History mg-600 mg capsule albuterol sulfate 90 mcg/actuation 2 puff inhalation Q4-6H PRN 01/15/21 04/19/25 Rx aerosol inhaler (Ventolin HFA) shortness of breath or wheezing #8.5 grams metoprolol tartrate 25 mg tablet 12.5 mg PO BID 01/30/25 04/19/25 History rivaroxaban 20 mg tablet (Xarelto) 20 mg PO DAILY 02/08/25 04/19/25 History glycopyrrolate 9 mcg-formoterol 2 inh inhalation BID #32.1 grams 03/19/25 04/19/25 Rx 4.8 mcg HFA aerosol inhaler (Bevespi Aerosphere) atorvastatin 10 mg tablet See Rx Instructions .Route 04/16/25 04/19/25 Rx .COMPLEX #90 tabs Allergies Allergy/AdvReac Type Severity Reaction Status Date / Time No Known Allergies Allergy Verified 04/19/25 10:44 Vital Signs Vital Signs - 24 hr 04/21/25 16:00 04/21/25 16:00 04/21/25 16:26 Temperature 36.6 C Pulse Rate 94 93 Respiratory Rate 18 Blood Pressure 116/79 Pulse Oximetry 98 97 Oxygen Delivery Room Air 04/21/25 16:50 04/21/25 18:00 04/21/25 20:00 Temperature 36.4 C Pulse Rate 114 H 95 98 Respiratory Rate 16 Blood Pressure 111/69 Pulse Oximetry 95 Oxygen Delivery 04/21/25 20:00 04/21/25 20:45 04/21/25 21:11 Temperature Pulse Rate 98 106 H Respiratory Rate Blood Pressure Pulse Oximetry Oxygen Delivery Room Air 04/21/25 21:30 04/21/25 22:00 04/21/25 23:50 Temperature Pulse Rate 110 H Respiratory Rate Blood Pressure Pulse Oximetry 96 Oxygen Delivery Room Air Room Air 04/21/25 23:51 04/22/25 00:00 04/22/25 02:00 Temperature 36.7 C Pulse Rate 91 85 93 Respiratory Rate 16 Blood Pressure 92/54 L Pulse Oximetry 94 Oxygen Delivery 04/22/25 04:00 04/22/25 04:10 04/22/25 04:32 Temperature 36.8 C Pulse Rate 92 92 Respiratory Rate 18 Blood Pressure 91/55 L Pulse Oximetry 93 Oxygen Delivery Room Air 04/22/25 06:00 04/22/25 06:11 04/22/25 07:44 Temperature 37.0 C Pulse Rate 94 95 102 H Respiratory Rate 18 Blood Pressure 115/78 Pulse Oximetry 94 Oxygen Delivery 04/22/25 08:00 04/22/25 08:22 04/22/25 10:00 Temperature Pulse Rate 115 H 113 H Respiratory Rate Blood Pressure Pulse Oximetry Oxygen Delivery Room Air 04/22/25 11:07 04/22/25 11:26 04/22/25 12:00 Temperature 37.0 C Pulse Rate 108 H 108 H Respiratory Rate 18 Blood Pressure 124/82 Pulse Oximetry 98 Oxygen Delivery Room Air 04/22/25 12:59 04/22/25 14:00 Temperature Pulse Rate 97 115 H Respiratory Rate Blood Pressure Pulse Oximetry Oxygen Delivery Exam 2 Const: General: comfortable and no acute distress HENMT: Face/Nose/Sinus: Normal nares present Mouth: Yes moist mucous membranes abnormal Eyes: Sclera: sclerae normal EOM: EOMs intact bilaterally Resp: Effort & Inspection: normal respiratory effort Cardio: Rate: regular rate GI: GI Palp: Yes Soft to palpation, No Tenderness to palpation present (GI) and No Guarding due to palpation present (GI) : Other: no CVA TTP Skin: Rashes: rashes noted Neuro: Speech: normal speech Extrem: General: normal to inspection Results Labs 04/22/25 04:23 04/22/25 04:23 Labs: Short CBC 04/22/25 Range/Units 04:23 WBC 19.7 H (4.5-10.0) K/mm3 Hgb 12.3 L (14.0-18.0) g/dL Hct 37.0 L (42.0-52.0) % Plt Count 270 (150-375) k/mm3 [facility] 04/22/25 04:23 Sodium 138 Potassium 4.7 Chloride 109 H Carbon Dioxide 24 BUN 35 H Creatinine 1.08 Glucose 112 H Calcium 9.2 Imaging My impression: left upper tract filling defect
--- NOTE | 2025-04-22 16:11 | P.DS_ITS ---
DS: Admitting Diagnosis Discharge Date 04/22/25 Admitting Diagnosis Shortness of breath and tachycardia DS: Discharge Diagnosis Discharge Diagnosis (1) Acute respiratory failure: Code(s): J96.00 - Acute respiratory failure, unspecified whether with hypoxia or hypercapnia Status: Acute (2) Pneumonia: Qualifiers: Laterality: right Lung location: lower lobe of lung Pneumonia type: due to unspecified organism Qualified Code(s): J18.9 - Pneumonia, unspecified organism Code(s): J18.9 - Pneumonia, unspecified organism Status: Acute (3) Sepsis: Qualifiers: Sepsis acute organ dysfunction status: unspecified Sepsis type: sepsis due to unspecified organism Qualified Code(s): A41.9 - Sepsis, unspecified organism Code(s): A41.9 - Sepsis, unspecified organism Status: Acute (4) Atrial fibrillation with rapid ventricular response: Code(s): I48.91 - Unspecified atrial fibrillation Status: Acute (5) Renal mass: Code(s): N28.89 - Other specified disorders of kidney and ureter Status: Acute (6) COPD (chronic obstructive pulmonary disease): Qualifiers: COPD type: unspecified COPD Qualified Code(s): J44.9 - Chronic obstructive pulmonary disease, unspecified Code(s): J44.9 - Chronic obstructive pulmonary disease, unspecified Status: Acute (7) CKD (chronic kidney disease): Code(s): N18.9 - Chronic kidney disease, unspecified Status: Acute (8) HLD (hyperlipidemia): Qualifiers: Hyperlipidemia type: unspecified Qualified Code(s): E78.5 - Hyperlipidemia, unspecified Code(s): E78.5 - Hyperlipidemia, unspecified Status: Acute DS: Summary Hospital Course Reason for hospitalization: 79yo male with COPD, HTN, HLD and AFib who presents to the hospital with fever, shortness of breath and tachycardia. Please see H&P for details. Hospital Course: Patient presented with SOB and found to have sepsis with leukocytosis, tachycardia and fever secondary to PNA. Treated with 30mL/kg - about 2.2L. CXR was abnormal and CTA chest showing no PE but moderate emphysema and Rt lower lobe PNA. ABG 7.53// on 1L. Treated with O2 then BiPAP. ABG improved to 7.43// on bipap. He had improvement in his symptoms. Duonebs started. Started on Rocephin and Azithro. BCx NGTD. Sputum Cx pending. WBC was higher but felt related to steroids. He receive Solu-Medrol 125mg IV in the ED and cont inued on oral Prednisone. MRSA nasal swab negative. Urine Ag ordered. Weaned to room air. Patient is compliant with medications at home. Suspect AFib/RVR secondary to infection and fever. Diltiazem drip started and rate better. Weaned off Dilt drip and transitioned back to oral metoprolol. HR still elevated at times and BP soft so we advanced metoprolol slowly. Home with Toprol XL. CT abd/pelvis showing a left renal pelvis 1.3cm filling defect with calcifications and soft tissue attenuation. Direct visualization was recommended. Urology consulted and felt patient needed further workup in the clinic once he is improved from his current infection. Patient overall did well. He has been up ambulating in the room. Heart rate reasonable. He was able to be discharged home on 04/22/25. Discussed with patient and family (with patient's permissin) and all questions answered. He was educated about the [facility] smoking cessation. Status at Discharge Cognitive/behavioral status at discharge: stable Time Spent with Patient Time attestation: Total time spent providing and/or coordinating discharge services: 35 minutes Time spent: Greater than 30 minutes Exam Narrative: AF 98.6 115/76 114 18 98% ra Gen - NARD Chest - CTA bilaterally. nml RR CV - irregular. tele showing AFib with mostly controlled rate. Abd - Soft, NT/ND, Positive BS Ext - No pedal edema Neuro - Alert and appropriate Psych - Nml mood and affect Skin - Warm and dry DS: Data Data Completed and Pending Labs on day of discharge: Labs from last 24 hours 04/22/25 04:23 WBC 19.7 H RBC 3.68 L Hgb 12.3 L Hct 37.0 L MCV 100.5 H MCH 33.4 MCHC 33.2 RDW 14.7 H Plt Count 270 MPV 9.0 Immature Gran % (Auto) 0.8 H Neut % (Auto) 83.2 H Lymph % (Auto) 10.7 L Dougherty % (Auto) 5.2 Eos % (Auto) 0.0 Baso % (Auto) 0.1 L Lymph # (Auto) 2.11 Dougherty # (Auto) 1.0 H Eos # (Auto) 0.0 Baso # (Auto) 0.0 Abs Immat Gran (auto) 0.16 H Absolute Neuts (auto) 16.4 H Absolute Nucleated RBC 0.020 H Nucleated RBC % 0.1 Sodium 138 Potassium 4.7 Chloride 109 H Carbon Dioxide 24 Anion Gap 5 BUN 35 H Creatinine 1.08 Estim Creat Clear Calc 54 Estimated GFR > 60 Glucose 112 H Calcium 9.2 Preliminary micro results at discharge 04/21/25 08:21 Sputum Culture - Preliminary Sputum 04/19/25 12:38 Blood Culture - Preliminary Blood 04/19/25 12:38 Blood Culture - Preliminary Blood Discharge Plan Discharge Attending physician on discharge: Andrei Gant Consulting providers: Devan Londono Discharging Clinician: Andrei Gant Anticipated Discharge Date/Time: 04/22/25 16:30 Patient Disposition: Home Activity: as tolerated Diet: heart healthy Discharge Instructions: Stop using all products that contain tobacco or nicotine. Check blood pressure 1 to 2 times a day. Record and bring into your doctor for review. Call your doctor if your blood pressure is less than 95/45. Please complete your antibiotic course even if you are starting to feel well. Take precautions to avoid falls. Rise slowly from a lying or sitting position. Pause before standing or walking. Contact your doctor or call 911 and come to the Emergency Room if you have fever, lightheadedness with standing or other worrisome symptoms. Avoid NSAIDs (ibuprofen, naproxen, Aleve). Tylenol is safe to take. Follow-up with your primary care provider in 1-2 weeks. Please call for appointment. Follow-up with Urology in 1-2 weeks. Please call for an appointment. Thank you for using [facility] for your health care needs. Patient Instructions: Antibiotic Form Patient Language: Samoan Stand Alone Forms: General Discharge Information Follow-up/Referrals: Devan Londono MD [Physician] - Call for Appointment Zane Rice DO [Primary Care Provider] - Call for Appointment Discharge Medications: New prednisone 20 mg Tablet 40 mg PO DAILY@0800 2 Days Qty: 4 0RF cefdinir 300 mg capsule 300 mg PO Q12H 3 Days Qty: 6 0RF Rx Instructions: START ON APRIL 23 metoprolol succinate 50 mg capsule,sprinkle,ER 24hr 50 mg PO DAILY Qty: 30 1RF azithromycin 250 mg tablet 250 mg PO DAILY 1 Days Qty: 1 0RF Continued Xarelto 20 mg tablet 20 mg PO DAILY Rx Instructions: must administer with evening meal co Q10-red yeast rice 60-600 mg Capsule 1 cap PO DAILY albuterol sulfate [Ventolin HFA] 90 mcg/actuation HFA aerosol inhaler 2 puff INHALATION Q4-6H PRN (Reason: shortness of breath or wheezing) Qty: 8.5 4RF Bevespi Aerosphere 9-4.8 mcg HFA aerosol inhaler 2 inh inhalation BID Qty: 32.1 1RF atorvastatin 10 mg tablet See Rx Instructions .ROUTE .COMPLEX Qty: 90 0RF Dose Instruction: TAKE 1 TABLET BY MOUTH EVERY DAY Rx Instructions: TAKE 1 TABLET BY MOUTH EVERY DAY Discontinued metoprolol tartrate 25 mg tablet 12.5 mg PO BID Date of admission: 04/19/25 16:35 Primary Care Provider: Zane Rice Admitting Provider: Shannan Maynard Attending physician on admission: Shannan Maynard Condition: Stable Hospitalist MIPS Heart Failure (Exclusion) Patient has history of Heart Transplant or Left Ventricular Assistive Device?: No IF YES, STOP HERE Heart Failure (Qualifier) Patient has current or prior documentation of LVEF less than or equal to 40%, or mod/servere depressed LVSF?: No IF NO, STOP HERE
[2025-04-22] MEDS: RIVAROXABAN 20 MG TABLET PO (16:17)
[2025-04-24 18:08] LABS: Mycoplasma IgM Antibody Titer. 250 U/mL
[2025-04-24 18:44] LABS: Pneumococcal Antigen Urine NOT DETECTED
[2025-04-25 16:58] LABS: Legionella pneumophila Ag Ur. NOT DETECTED
--- NOTE | 2025-05-02 11:38 | PC.NURSE ---
Urine legionella and pneumococcal are both negative. Sputum cx is negative. Blood cx are negative. Mycoplasma is WNL at 250.Dr. Alfreda galarza.
== END 2025-04-22 17:20 | disposition home or self-care (01) | DRG 871 ==
LOC: ANHED 13:40 → ANHIMU 15:28 → ANHICU 15:50 → ANHIMU 04-22 16:31 → ANHICU 04-24 11:10
PROVIDERS: Emergency Medicine; Nurse Practitioner Gerontology; Admitting Provider Internal Medicine; Emergency Provider Physician Assistant; PCP Internal Medicine; Visit Provider Internal Medicine
DX: A41.9 Sepsis, unspecified organism (principal); J18.9 Pneumonia, unspecified organism; J96.00 Acute respiratory failure, unspecified whether with hypoxia or hypercapnia; E78.5 Hyperlipidemia, unspecified; F17.210 Nicotine dependence, cigarettes, uncomplicated; I12.9 Hypertensive chronic kidney disease with stage 1 through stage 4 chronic kidney disease, or unspecified chronic kidney disease; I48.91 Unspecified atrial fibrillation; J43.9 Emphysema, unspecified; N28.89 Other specified disorders of kidney and ureter; N18.9 Chronic kidney disease, unspecified; Z85.828 Personal history of other malignant neoplasm of skin; Z79.01 Long term (current) use of anticoagulants; Z20.822 Contact with and (suspected) exposure to COVID-19
CPT/HCPCS: 36415; 36600; 71046; 71260; 74178; 80048; 80053; 81001; 82805; 83605; 83880; 84484; 85018; 85025; 85610; 85730; 86738; 87040; 87070; 87205; 87449; 87637; 87641; 87899; 93005; 94002; 94640; 96361; 96365; 96366; 96368; 96375; 97161; 97165; 97535; 99285; A9270; G0378; J0456; J0616; J0696; J2919; J7030; J7512; Q9967